=== PATIENT | male | born 1930 | race Caucasian/White ===

== ENCOUNTER 2019-09-04 10:44 | Inpatient (IN) | payer MEDICARE ==
[~2019-09-04] VITALS: Ht 177.8 cm; Wt 74.0 kg
[2019-09-04] VITALS (8 sets, daily range): BP systolic 136–189; BP diastolic 82–103
--- NOTE | 2019-09-04 10:46 | NUR ---
ED Nurse Note: Pt arrived with [employer] , due to behavioral complaint. [facility] unit at beside placed pt on 5150 hold. pt is rambling and speaking nonsense. vss.
--- NOTE | 2019-09-04 10:46 | NUR ---
ED Nurse Note: CLINICAL LAB SCIENTIST PROVIDED A NUMBER THAT WAS POSTED AGAINST THE WALL CHRISTINE [id number], [id number]
[2019-09-04] MEDS ORDERED: LORazepam Inj 2mg/ml 1ml IM ONE (11:00)
[2019-09-04] MEDS ORDERED: Haloperidol 5mg/ml Inj IM ONE (11:00)
--- NOTE | 2019-09-04 11:04 | Emergency Room Report ---
History of Present Illness General Chief Complaint: Altered Mental Status Source: EMS, Law Enforcement Present Illness HPI Patient had reportedly presented to the police department Appears to be acting bizarre and Police Department was concerned After arriving to the patient's house they report it appeared uncapped and they were concerned about the patient's wellbeing Patient has been placed on a 5150 at this time Upon arrival is initially refusing intervention Patient reports that the Police Department went to his house and he did not seek care Patient does have broken thought process Not able to have appropriate conversation appears to have limited history of present illness Allergies: Coded Allergies: UNABLE TO ASSESS (Unverified , 09/04/19) PT. IS ALTERED Patient History Limited by: medical condition Past Medical History: see triage record Reviewed Nursing Documentation: PMH: Agreed; PSxH: Agreed Review of Systems All Other Systems: limited - Other than the ones mentioned in the history of present illness all others are reviewed however they do stay limited due to the patient's mental status Physical Exam Vital Signs Date Time Temp Pulse Resp B/P (MAP) Pulse Ox O2 Delivery O2 Flow Rate FiO2 09/04/19 10:40 80 19 212/110 (144) 98 Room Air Sp02 EP Interpretation: reviewed, normal General Appearance: no apparent distress - However mildly agitated Head: normocephalic, atraumatic Eyes: bilateral eye PERRL, bilateral eye EOMI ENT: EOM grossly intact, moist mucus membranes Neck: supple Respiratory: lungs clear, no respiratory distress, no retraction Cardiovascular #1: regular rate, rhythm Gastrointestinal: non tender, soft Musculoskeletal: normal inspection - No obvious focal deficit is appreciated Neurologic: alert, other - Patient does have underlying confusion however cannot provide family member information or any other contact information Psychiatric: anxious Skin: no rash Lymphatic: normal inspection Procedures Critical Care Time Critical Care Time 70 minutes for multiple re-evaluations, emergent presentation and ongoing care in the emergency room, concern for respiratory failure and cardiopulmonary arrest not including any procedural time Medical Decision Making Diagnostic Impression: Primary Impression: Encephalopathy Additional Impression: Altered mental status ER Course Multiple differentials including but not limited to neurological, neurosurgical , metabolic infectious process entertained, upon arrival patient requires sedation as he is Aggressive and severely agitated Patient is also on a 5150 requiring further extensive work-up CT imaging of the brain does not show any obvious acute process There was question regarding foreign body Which is further evaluated X-ray does not show any acute process of the chest Patient is further hydrated requires multispecialty inpatient consultation Labs Test 09/04/19 10:46 09/04/19 11:25 09/04/19 12:00 09/05/19 07:30 White Blood Count 8.7 K/UL (4.8-10.8) 9.2 K/UL (4.8-10.8) Red Blood Count 4.10 M/UL (4.70-6.10) 4.03 M/UL (4.70-6.10) Hemoglobin 12.8 G/DL (14.2-18.0) 12.9 G/DL (14.2-18.0) Hematocrit 38.7 % (42.0-52.0) 38.0 % (42.0-52.0) Mean Corpuscular Volume 95 FL (80-99) 94 FL (80-99) Mean Corpuscular Hemoglobin 31.3 PG (27.0-31.0) 31.9 PG (27.0-31.0) Mean Corpuscular Hemoglobin Concent 33.1 G/DL (32.0-36.0) 33.9 G/DL (32.0-36.0) Red Cell Distribution Width 12.7 % (11.6-14.8) 12.9 % (11.6-14.8) Platelet Count 349 K/UL (150-450) 349 K/UL (150-450) Mean Platelet Volume 5.1 FL (6.5-10.1) 5.4 FL (6.5-10.1) Neutrophils (%) (Auto) 67.1 % (45.0-75.0) 77.9 % (45.0-75.0) Lymphocytes (%) (Auto) 17.9 % (20.0-45.0) 10.4 % (20.0-45.0) Monocytes (%) (Auto) 12.3 % (1.0-10.0) 10.0 % (1.0-10.0) Eosinophils (%) (Auto) 1.9 % (0.0-3.0) 1.2 % (0.0-3.0) Basophils (%) (Auto) 0.9 % (0.0-2.0) 0.5 % (0.0-2.0) Sodium Level 140 MMOL/L (136-145) 140 MMOL/L (136-145) Potassium Level 4.0 MMOL/L (3.5-5.1) 3.9 MMOL/L (3.5-5.1) Chloride Level 104 MMOL/L (98-107) 106 MMOL/L (98-107) Carbon Dioxide Level 26 MMOL/L (21-32) 23 MMOL/L (21-32) Anion Gap 10 mmol/L (5-15) 11 mmol/L (5-15) Blood Urea Nitrogen 20 mg/dL (7-18) 16 mg/dL (7-18) Creatinine 0.9 MG/DL (0.55-1.30) 0.8 MG/DL (0.55-1.30) Estimat Glomerular Filtration Rate mL/min (>60) > 60 mL/min (>60) Glucose Level 104 MG/DL (74-106) 149 MG/DL (74-106) Calcium Level 9.1 MG/DL (8.5-10.1) 9.0 MG/DL (8.5-10.1) Total Bilirubin 0.5 MG/DL (0.2-1.0) 0.7 MG/DL (0.2-1.0) Aspartate Amino Transf (AST/SGOT) 47 U/L (15-37) 46 U/L (15-37) Alanine Aminotransferase (ALT/SGPT) 34 U/L (12-78) 33 U/L (12-78) Alkaline Phosphatase 90 U/L (46-116) 92 U/L (46-116) Total Creatine Kinase 759 U/L (26-308) Creatine Kinase MB 16.2 NG/ML (0.0-3.6) Creatine Kinase MB Relative Index 2.1 Troponin I 0.132 ng/mL (0.000-0.056) Pro-B-Type Natriuretic Peptide 309 pg/mL (0-125) Total Protein 7.7 G/DL (6.4-8.2) 7.4 G/DL (6.4-8.2) Albumin 3.5 G/DL (3.4-5.0) 3.2 G/DL (3.4-5.0) Globulin 4.2 g/dL 4.2 g/dL Albumin/Globulin Ratio 0.8 (1.0-2.7) 0.8 (1.0-2.7) Lipase 166 U/L (73-393) Serum Alcohol < 3 mg/dL Lactic Acid Level 1.30 mmol/L (0.4-2.0) Urine Color Pale yellow Urine Appearance Clear Urine pH 6.5 (4.5-8.0) Urine Specific [place] 1.010 (1.005-1.035) Urine Protein Negative (NEGATIVE) Urine Glucose (UA) Negative (NEGATIVE) Urine Ketones Negative (NEGATIVE) Urine Blood Negative (NEGATIVE) Urine Nitrite Negative (NEGATIVE) Urine Bilirubin Negative (NEGATIVE) Urine Urobilinogen Normal MG/DL (0.0-1.0) Urine Leukocyte Esterase Negative (NEGATIVE) Urine Opiates Screen Negative (NEGATIVE) Urine Barbiturates Screen Negative (NEGATIVE) Phencyclidine (PCP) Screen Negative (NEGATIVE) Urine Amphetamines Screen Negative (NEGATIVE) Urine Benzodiazepines Screen Negative (NEGATIVE) Urine Cocaine Screen Negative (NEGATIVE) Urine Marijuana (THC) Screen Negative (NEGATIVE) Test 09/06/19 15:08 09/06/19 16:00 Arterial Blood pH 7.451 (7.350-7.450) Arterial Blood Partial Pressure CO2 37.5 mmHg (35.0-45.0) Arterial Blood Partial Pressure O2 73.2 mmHg (75.0-100.0) Arterial Blood HCO3 25.5 mmol/L (22.0-26.0) Arterial Blood Oxygen Saturation 94.7 % (95-100) Arterial Blood Base Excess 1.7 (-2-2) Angel Test Positive White Blood Count 14.3 K/UL (4.8-10.8) Red Blood Count 3.97 M/UL (4.70-6.10) Hemoglobin 12.2 G/DL (14.2-18.0) Hematocrit 39.6 % (42.0-52.0) Mean Corpuscular Volume 100 FL (80-99) Mean Corpuscular Hemoglobin 30.8 PG (27.0-31.0) Mean Corpuscular Hemoglobin Concent 30.9 G/DL (32.0-36.0) Red Cell Distribution Width 13.9 % (11.6-14.8) Platelet Count 343 K/UL (150-450) Mean Platelet Volume 6.3 FL (6.5-10.1) Neutrophils (%) (Auto) 87.0 % (45.0-75.0) Lymphocytes (%) (Auto) 3.9 % (20.0-45.0) Monocytes (%) (Auto) 8.1 % (1.0-10.0) Eosinophils (%) (Auto) 0.1 % (0.0-3.0) Basophils (%) (Auto) 0.9 % (0.0-2.0) Sodium Level 142 MMOL/L (136-145) Potassium Level 4.2 MMOL/L (3.5-5.1) Chloride Level 104 MMOL/L (98-107) Carbon Dioxide Level 31 MMOL/L (21-32) Anion Gap 8 mmol/L (5-15) Blood Urea Nitrogen 17 mg/dL (7-18) Creatinine 0.9 MG/DL (0.55-1.30) Estimat Glomerular Filtration Rate > 60 mL/min (>60) Glucose Level 150 MG/DL (74-106) Calcium Level 9.0 MG/DL (8.5-10.1) Total Bilirubin 0.5 MG/DL (0.2-1.0) Aspartate Amino Transf (AST/SGOT) 37 U/L (15-37) Alanine Aminotransferase (ALT/SGPT) 31 U/L (12-78) Alkaline Phosphatase 88 U/L (46-116) Troponin I 0.099 ng/mL (0.000-0.056) Total Protein 7.1 G/DL (6.4-8.2) Albumin 3.5 G/DL (3.4-5.0) Globulin 3.6 g/dL Albumin/Globulin Ratio 1.0 (1.0-2.7) Rhythm Strip Diag. Results EP Interpretation: yes Rate: 77 Rhythm: NSR, no PVC's, no ectopy Chest X-Ray Diagnostic Results Chest X-Ray Diagnostic Results : Chest X-Ray Ordered: Yes # of Views/Limited/Complete: 1 View Indication: Chest Pain EP Interpretation: Yes Interpretation: no consolidation, no pneumothorax, other - Bilateral lower lobe atelectasis Impression: Other - bilateral Lobe atelectasis Electronically Signed by: Orly Tee, CT/MRI/US Diagnostic Results CT/MRI/US Diagnostic Results : Impression CT headImpression: Negative for acute intracranial bleed or mass effect Possible mass in the left nasal fossa. Correlate with clinical findings. This should be amenable to direct visual inspection Chronic and age-related changes, as described Left maxillary sinus polyp versus mucous retention cyst Last Vital Signs Date Time Temp Pulse Resp B/P (MAP) Pulse Ox O2 Delivery O2 Flow Rate FiO2 09/04/19 10:40 80 19 212/110 (144) 98 Room Air Status: improved Disposition: ADMITTED INPATIENT Condition: Serious Scripts Unable to Obtain Active Prescriptions or Reported Meds Orly Tee DO Sep 04, 2019 11:04
[2019-09-04 11:28] LABS: BASOPHILS % (AUTO) 0.9 % (0.0-2.0); EOSINOPHILS % (AUTO) 1.9 % (0.0-3.0); HEMATOCRIT 38.7 % (42.0-52.0); HEMOGLOBIN 12.8 G/DL (14.2-18.0); LYMPHOCYTES % (AUTO) 17.9 % (20.0-45.0); MEAN CORPUSCULAR VOLUME 95 FL (80-99); MONOCYTES % (AUTO) 12.3 % (1.0-10.0); NEUTROPHILS % (AUTO) 67.1 % (45.0-75.0); PLATELET COUNT 349 K/UL (150-450); RED CELL DISTRIBUTION WIDTH 12.7 % (11.6-14.8); WHITE BLOOD COUNT 8.7 K/UL (4.8-10.8)
--- NOTE | 2019-09-04 11:32 | NUR ---
ED Nurse Note: pt take for head CT
[2019-09-04 11:41] LABS: ANION GAP 10 mmol/L (5-15); BLOOD UREA NITROGEN 20 mg/dL (7-18); CALCIUM 9.1 MG/DL (8.5-10.1); CARBON DIOXIDE 26 MMOL/L (21-32); CHLORIDE 104 MMOL/L (98-107); CREATININE 0.9 MG/DL (0.55-1.30); SODIUM 140 MMOL/L (136-145)
[2019-09-04 11:56] LABS: ALANINE AMINOTRANSFERASE 34 U/L (12-78); ALBUMIN 3.5 G/DL (3.4-5.0); ALBUMIN/GLOBULIN RATIO 0.8 (1.0-2.7); ALKALINE PHOSPHATASE 90 U/L (46-116); ASPARTATE AMINO TRANSFERASE 47 U/L (15-37); BILIRUBIN,TOTAL 0.5 MG/DL (0.2-1.0); CKMB 16.2 NG/ML (0.0-3.6); CREATINE KINASE 759 U/L (26-308)
--- NOTE | 2019-09-04 12:01 | NUR ---
ED Nurse Note: pt provided urine and specimen sent to lab
[2019-09-04 12:14] LABS: APPEARANCE,URINE CLEAR; BILIRUBIN, URINE NEGATIVE (NEGATIVE); COLOR,URINE PALE YELLOW; GLUCOSE, URINE (UA) NEGATIVE (NEGATIVE); KETONES,URINE NEGATIVE (NEGATIVE); LEUKOCYTE ESTERASE ,URINE NEGATIVE (NEGATIVE); NITRITE,URINE NEGATIVE (NEGATIVE); PH,URINE 6.5 (4.5-8.0); PROTEIN,URINE NEGATIVE (NEGATIVE); UROBILINOGEN,URINE NORMAL MG/DL (0.0-1.0)
--- NOTE | 2019-09-04 12:54 | Diagnostic Imaging Report ---
Indications: Altered mental status Technique: Spiral acquisitions obtained through the brain. Angled axial and coronal 5 x 5 mm slices were reconstructed. Total dose length product and 72 mGycm. CTDI vol(s) 53 mGy. Dose reduction achieved using automated exposure control Comparison: None. Findings: There is age-related enlargement of the ventricles and extra axial CSF spaces. There is periventricular deep white matter low-attenuation, consistent with chronic microvascular ischemic change. 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 No acute intercranial hemorrhage or edema, mass effect, nor midline shift. There is a left maxillary sinus polyp versus mucous retention cyst. There is chronic appearing fracture deformity of the tip of the nasal bone. The mastoids are clear. The calvarium is intact. There is suggestion of a hyperdense mass involving the anterior left middle nasal turbinate, measuring approximately 2 x 1.1 x 2 cm. Impression: Negative for acute intracranial bleed or mass effect Possible mass in the left nasal fossa. Correlate with clinical findings. This should be amenable to direct visual inspection Chronic and age-related changes, as described Left maxillary sinus polyp versus mucous retention cyst The CT scanner at [facility] is accredited by the [employer] and the scans are performed using protocols designed to limit radiation exposure to as low as reasonably achievable to attain images of sufficient resolution adequate for diagnostic evaluation.
--- NOTE | 2019-09-04 13:10 | Diagnostic Imaging Report ---
Indication: Chest pain Technique: One view of the chest Comparison: none Findings: Left hemidiaphragm is elevated. There are bilateral basilar atelectatic changes. The lungs and pleural spaces are otherwise clear. The heart size is upper limits of normal Impression: Bibasal atelectasis. No acute process otherwise
--- NOTE | 2019-09-04 13:25 | NUR ---
ED Nurse Note: PT IN BED ASLEEP
--- NOTE | 2019-09-04 15:00 | NUR ---
ED Nurse Note: Pt asleep in bed, linens changed, gown changed.
--- NOTE | 2019-09-04 17:16 | NUR ---
HAND-OFF: Report given to BENJY tolentino.
--- NOTE | 2019-09-04 20:15 | Consultation ---
DATE OF CONSULTATION: 09/04/2019 CONSULTING PHYSICIAN: Karlee Montez M.D. HISTORY OF PRESENT ILLNESS: This is an 89-year-old male with a history of multiple medical comorbidities who has been admitted to the hospital for medical stabilization. The patient is having a history of altered mental status as well as anxiety and the patient is disorganized. The patient was placed on the 5150 for bizarre behavior and severely being agitated. The patient is acting agitated and refusing care. The patient received a psychotropic medication in the emergency room. The patient is on a 5150, which will be canceled once they come to the medical floor. PAST PSYCHIATRIC HISTORY: The patient is unable to provide any meaningful information in regards to the past psychiatric history. PAST MEDICAL HISTORY: Unknown. ALLERGIES: No known drug allergies. SUBSTANCE ABUSE HISTORY: No known history of illicit drug use or alcohol. PLAN: 1. We will start the patient on low-dose of antipsychotics. 2. Ativan p.r.n. 3. We will discussed the case with the primary physician. Karlee Montez M.D. DR: LIAM JOB#: [id number] CC:
--- NOTE | 2019-09-04 21:57 | NUR ---
ER Nurse Note: Pt calm, cooperative, does not get out of bed. LT FA DC, new IV established on RT FA 20 guage; patent and wrapped in gauze. ERMD aware; hydralazine 0.5ml given. RT upper arm skin tear; slightly bleeding, photo taken. Skin rough but intact. Sitter at bedside; will continue to montior.
--- NOTE | 2019-09-04 22:56 | NUR ---
ER Nurse Note: Report given to BENJY [place] for continuity of care. Pt cooprative, no signs of distress. Pt remains at baseline. BP controlled by hydralazine. Skin tear gauzed and documented. Sitter at bedside. All belongings taken with pt, all safety measures met.
[2019-09-04] MEDS ORDERED: Acetaminophen 500mg (ES) tab ORAL PRN (23:15)
--- NOTE | 2019-09-04 23:30 | NUR ---
NURSE NOTES: Patient admitted from ER via gurney, accompanied by RN and sitter. Belongings verified at bedside. Patient cooperative at this time. IV right forearm wrapped in kerlix. Noted skin tear on right upper arm. No signs of acute distress. Oriented to room and unit. Bed locked in low position, bed alarm on. Fall risk precautions. Will monitor closely; sitter at bedside at all times.
[2019-09-05] VITALS (7 sets, daily range): BP systolic 96–144; BP diastolic 63–87
--- NOTE | 2019-09-05 04:45 | History and Physical Report ---
DATE OF ADMISSION: 09/04/2019 HISTORY OF PRESENT ILLNESS: The patient is gravely disabled. He was here initially apparently by police for a 5150 because the patient is gravely disabled, hearing deficit, has dementia, not oriented, cannot get any reliable history from him. Apparently, the patient is here for altered mental status and advanced dementia, admitted for rule out encephalopathy. PAST MEDICAL HISTORY: 1. Advanced dementia. 2. Hearing deficit. PAST SURGICAL HISTORY: Denies. ALLERGIES: Unable to assess. MEDICATIONS: Unable to assess. FAMILY HISTORY: Unable to assess. SOCIAL HISTORY: The patient denies history of smoking, alcohol, or illicit drugs, however, is a poor historian. REVIEW OF SYSTEMS: Unable to assess, poor historian. PHYSICAL EXAMINATION: VITAL SIGNS: Temperature 98.4, pulse 80, blood pressure 189/103. HEENT: PERRLA. NECK: Supple. No lymphadenopathy. CHEST: Clear to auscultation. CARDIOVASCULAR: Regular rate and rhythm. No murmurs or extra sounds. GASTROINTESTINAL: Soft, nontender, nondistended. No organomegaly. EXTREMITIES: No edema. Moves all four extremities. NEUROLOGIC: Sensory intact to light touch. Reflexes equal on both sides. Moves all four extremities. . LABORATORY AND DIAGNOSTIC DATA: WBC of 8.7, hemoglobin 12.8. Sodium 140, potassium 4, BUN of 20, creatinine 0.9, . Troponin 0.132. ASSESSMENT: 1. Elevated troponin. 2. Altered mental status. 3. Advanced dementia. I have asked Dr. Montez, Dr. Lee Avila, Dr. Shashi Em, Dr. Anirudh Godfrey to see the patient for the altered mental status as well as Dr. Em has been consulted for elevated troponin. Orly Gilbert M.D. DR: Melinda JOB#: [id number] CC:
--- NOTE | 2019-09-05 07:51 | NUR ---
HAND-OFF: Report given to Kym BURLESON.
[2019-09-05 08:17] LABS: BASOPHILS % (AUTO) 0.5 % (0.0-2.0); EOSINOPHILS % (AUTO) 1.2 % (0.0-3.0); HEMOGLOBIN 12.9 G/DL (14.2-18.0); LYMPHOCYTES % (AUTO) 10.4 % (20.0-45.0); MEAN CORPUSCULAR VOLUME 94 FL (80-99); NEUTROPHILS % (AUTO) 77.9 % (45.0-75.0); PLATELET COUNT 349 K/UL (150-450); RED BLOOD COUNT 4.03 M/UL (4.70-6.10); RED CELL DISTRIBUTION WIDTH 12.9 % (11.6-14.8); WHITE BLOOD COUNT 9.2 K/UL (4.8-10.8)
[2019-09-05 09:03] LABS: ALANINE AMINOTRANSFERASE 33 U/L (12-78); ALBUMIN 3.2 G/DL (3.4-5.0); ALBUMIN/GLOBULIN RATIO 0.8 (1.0-2.7); ALKALINE PHOSPHATASE 92 U/L (46-116); ANION GAP 11 mmol/L (5-15); ASPARTATE AMINO TRANSFERASE 46 U/L (15-37); BILIRUBIN,TOTAL 0.7 MG/DL (0.2-1.0); BLOOD UREA NITROGEN 16 mg/dL (7-18); CARBON DIOXIDE 23 MMOL/L (21-32); CHLORIDE 106 MMOL/L (98-107); CREATININE 0.8 MG/DL (0.55-1.30); POTASSIUM 3.9 MMOL/L (3.5-5.1); SODIUM 140 MMOL/L (136-145)
--- NOTE | 2019-09-05 10:17 | Consultation ---
History of Present Illness General Chief Complaint: Altered Mental Status Present Illness Allergies: Coded Allergies: UNABLE TO ASSESS (Unverified , 09/04/19) PT. IS ALTERED Medication History Unable to Obtain Active Prescriptions or Reported Meds Patient History Healthcare decision maker Resuscitation status Full Code Advanced Directive on File Physical Exam Last 24 Hour Vital Signs Date Time Temp Pulse Resp B/P (MAP) Pulse Ox O2 Delivery O2 Flow Rate FiO2 09/05/19 09:00 Room Air 09/05/19 09:00 97.1 77 19 138/75 (96) 96 09/05/19 04:00 98.2 79 18 141/87 (105) 96 09/05/19 00:00 98.1 84 20 96/69 (78) 97 09/04/19 23:30 Room Air 09/04/19 23:10 97.7 82 20 157/88 (111) 95 09/04/19 22:56 98.2 82 16 138/82 98 Room Air 09/04/19 22:56 98.2 82 16 138/82 98 Room Air 09/04/19 22:06 98.2 84 16 136/101 98 Room Air 09/04/19 21:57 98.2 84 16 180/90 98 Room Air 09/04/19 21:56 180/90 09/04/19 15:15 98.2 79 15 168/84 98 Room Air 09/04/19 13:12 98.2 89 17 175/98 100 Room Air 09/04/19 12:30 98.4 72 22 168/101 98 Room Air 09/04/19 10:46 98.4 102 19 189/103 98 Room Air 09/04/19 10:46 80 19 Room Air 09/04/19 10:40 80 19 212/110 (144) 98 Room Air Intake and Output 09/04/19 09/05/19 19:00 07:00 Intake Total 1000 ml Output Total 0 ml Balance 1000 ml Intake IV Total 1000 ml Output Urine Total 0 ml Laboratory Tests Test 09/04/19 10:46 09/04/19 11:25 09/04/19 12:00 09/05/19 07:30 White Blood Count 8.7 K/UL (4.8-10.8) 9.2 K/UL (4.8-10.8) Red Blood Count 4.10 M/UL (4.70-6.10) L 4.03 M/UL (4.70-6.10) L Hemoglobin 12.8 G/DL (14.2-18.0) L 12.9 G/DL (14.2-18.0) L Hematocrit 38.7 % (42.0-52.0) L 38.0 % (42.0-52.0) L Mean Corpuscular Volume 95 FL (80-99) 94 FL (80-99) Mean Corpuscular Hemoglobin 31.3 PG (27.0-31.0) H 31.9 PG (27.0-31.0) H Mean Corpuscular Hemoglobin Concent 33.1 G/DL (32.0-36.0) 33.9 G/DL (32.0-36.0) Red Cell Distribution Width 12.7 % (11.6-14.8) 12.9 % (11.6-14.8) Platelet Count 349 K/UL (150-450) 349 K/UL (150-450) Mean Platelet Volume 5.1 FL (6.5-10.1) L 5.4 FL (6.5-10.1) L Neutrophils (%) (Auto) 67.1 % (45.0-75.0) 77.9 % (45.0-75.0) H Lymphocytes (%) (Auto) 17.9 % (20.0-45.0) L 10.4 % (20.0-45.0) L Monocytes (%) (Auto) 12.3 % (1.0-10.0) H 10.0 % (1.0-10.0) Eosinophils (%) (Auto) 1.9 % (0.0-3.0) 1.2 % (0.0-3.0) Basophils (%) (Auto) 0.9 % (0.0-2.0) 0.5 % (0.0-2.0) Sodium Level 140 MMOL/L (136-145) 140 MMOL/L (136-145) Potassium Level 4.0 MMOL/L (3.5-5.1) 3.9 MMOL/L (3.5-5.1) Chloride Level 104 MMOL/L (98-107) 106 MMOL/L (98-107) Carbon Dioxide Level 26 MMOL/L (21-32) 23 MMOL/L (21-32) Anion Gap 10 mmol/L (5-15) 11 mmol/L (5-15) Blood Urea Nitrogen 20 mg/dL (7-18) H 16 mg/dL (7-18) Creatinine 0.9 MG/DL (0.55-1.30) 0.8 MG/DL (0.55-1.30) Estimat Glomerular Filtration Rate mL/min (>60) > 60 mL/min (>60) Glucose Level 104 MG/DL (74-106) 149 MG/DL (74-106) H Calcium Level 9.1 MG/DL (8.5-10.1) 9.0 MG/DL (8.5-10.1) Total Bilirubin 0.5 MG/DL (0.2-1.0) 0.7 MG/DL (0.2-1.0) Aspartate Amino Transf (AST/SGOT) 47 U/L (15-37) H 46 U/L (15-37) H Alanine Aminotransferase (ALT/SGPT) 34 U/L (12-78) 33 U/L (12-78) Alkaline Phosphatase 90 U/L (46-116) 92 U/L (46-116) Total Creatine Kinase 759 U/L (26-308) H Creatine Kinase MB 16.2 NG/ML (0.0-3.6) H Creatine Kinase MB Relative Index 2.1 Troponin I 0.132 ng/mL (0.000-0.056) Pro-B-Type Natriuretic Peptide 309 pg/mL (0-125) H Total Protein 7.7 G/DL (6.4-8.2) 7.4 G/DL (6.4-8.2) Albumin 3.5 G/DL (3.4-5.0) 3.2 G/DL (3.4-5.0) L Globulin 4.2 g/dL 4.2 g/dL Albumin/Globulin Ratio 0.8 (1.0-2.7) L 0.8 (1.0-2.7) L Lipase 166 U/L (73-393) Serum Alcohol < 3 mg/dL Lactic Acid Level 1.30 mmol/L (0.4-2.0) Urine Color Pale yellow Urine Appearance Clear Urine pH 6.5 (4.5-8.0) Urine Specific [place] 1.010 (1.005-1.035) Urine Protein Negative (NEGATIVE) Urine Glucose (UA) Negative (NEGATIVE) Urine Ketones Negative (NEGATIVE) Urine Blood Negative (NEGATIVE) Urine Nitrite Negative (NEGATIVE) Urine Bilirubin Negative (NEGATIVE) Urine Urobilinogen Normal MG/DL (0.0-1.0) Urine Leukocyte Esterase Negative (NEGATIVE) Urine Opiates Screen Negative (NEGATIVE) Urine Barbiturates Screen Negative (NEGATIVE) Phencyclidine (PCP) Screen Negative (NEGATIVE) Urine Amphetamines Screen Negative (NEGATIVE) Urine Benzodiazepines Screen Negative (NEGATIVE) Urine Cocaine Screen Negative (NEGATIVE) Urine Marijuana (THC) Screen Negative (NEGATIVE) Microbiology Date/Time Source Procedure Growth Status 09/04/19 21:50 Rectum Received Height (Feet): 5 Height (Inches): 10.00 Weight (Pounds): 163 Medications Current Medications Medications (Trade) Dose Ordered Sig/[place] Route PRN Reason Start Time Stop Time Status Last Admin Dose Admin Acetaminophen (Tylenol) 500 mg Q4H PRN ORAL Mild Pain/Temp > 100.5 09/04/19 23:15 10/04/19 23:14 Assessment/Plan Assessment/Plan: Hematology Consultation REQ MD: Orly Britt RFC: ANemia and FTT DOS: 09/05/19 ID 89y old [place] patient had reportedly presented to the police department Appears to be acting bizarre and Police Department was concerned After arriving to the patient's house they report it appeared uncapped and they were concerned about the patient's wellbeing Patient has been placed on a 5150 at this time Upon arrival is initially refusing intervention Patient reports that the Police Department went to his house and he did not seek care Patient does have broken thought process Not able to have appropriate conversation appears to have limited history of present illness Seen by Dr. Montez, psych meds started Heme was consulted for ftt and anemia eval Coded Allergies: UNABLE TO ASSESS (Unverified , 09/04/19) PT. IS ALTERED Patient History Limited by: medical condition Past Medical History: see triage record Reviewed Nursing Documentation: PMH: Agreed; PSxH: Agreed Review of Systems All Other Systems: limited - Other than the ones mentioned in the history of present illness all others are reviewed however they do stay limited due to the patient's mental status Fam Hx: unreliable Physical Exam: Vitals: reviewed General Appearance: NAD, ConfuseD++ HEENT: normocephalic, atraumatic Neck: non-tender, supple Respiratory/Chest: normal breath sounds bilaterally Cardiovascular/Chest: normal peripheral pulses, normal rate Abdomen: normal bowel sounds, soft, nontender Extremities: normal range of motion Labs: noted Imaging: reviewed Assess/Recs: # Anemia of chronic disease due to underlying chronic medical issues, multifactorial v Gi bleed --> Anemia workup has been ordered, rule out gi bleed --> No evidence of hemolysis is noted, peripheral smear has been reviewed. --> Hgb goal >7. Transfuse prn. --> Epogen or iron at this time is not particularly indicated --> Medications have been reviewed --> low threshold for gi evaluation in case has occult + # Troponin elevation --> mild, as per cards eval --> repeat as needed # Dehydration --> po intake and ivf as needed --> per renal # pSych d/o --> as per Dr. Montez # Dementia --> per neuro Reviewed with Rn, appreciate consultation Lee Avila MD Sep 05, 2019 10:17
--- NOTE | 2019-09-05 11:30 | NUR ---
NURSE NOTES: pt in bed with sitter at bedside. Remains calm in bed. Breathing regular and unlabored. denies any pain at this time. bed in lowest position. fall precaution provided. will continue to monitor.
--- NOTE | 2019-09-05 12:51 | NUR ---
NURSE NOTES: sitter at bedside. Educated sitter for fall precaution. Informed [place] WEIGHER that pt is at high fall risk. RN made frequent rounding. Bed alarm on, bed in lowest position. siderails x2 up. Call light within reach at all time. will continue to monitor
--- NOTE | 2019-09-05 13:44 | NUR ---
CASE MANAGEMENT:INITIAL REVIEW 89 YR OLD MALE BIBA FROM HOME CC;ALTERED MENTAL STATUS SI;ALTERED MENTAL STATUS. ENCEPHALOPATHY. 98.4 102 22 212/110 98% ON RA BUN 20 AST 47 TCK 759 [address] - Negative for acute intracranial bleed or mass effect IS;HALDOL IM X1 ATIVAN IM X1 IVF NS BOLUS X1 ADMITTED TO MED SURG MED SURG STATUS DCP;FROM HOME
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
--- NOTE | 2019-09-05 14:33 | Consultation ---
History of Present Illness General Date patient seen: Sep 05, 2019 Reason for Hospitalization: Altered Mental Status Present Illness HPI 89M currently admitted for mental evaluation given AMS and acting bizarre. On admission noted to have sacral DTI. surgery called to evaluate. pt seen, chart reviewed, patient examined. 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 is ambulatory. no complaints no nv/f/c/ Allergies: Coded Allergies: UNABLE TO ASSESS (Unverified , 09/04/19) PT. IS ALTERED Medication History Unable to Obtain Active Prescriptions or Reported Meds Patient History Limited by: medical condition History Provided By: Patient, Medical Record, PMD Healthcare decision maker Resuscitation status Full Code Advanced Directive on File Past Medical/Surgical History Past Medical/Surgical History: (1) Altered mental status (2) Encephalopathy (3) Decubital ulcer Review of Systems Review of Symptoms General ROS: no weight loss or fever Psychological ROS: no depression or mood changes, no memory loss Ophthalmic ROS: no visual changes or eye irritation ENT ROS: no nasal congestion, hearing loss, dizziness Allergy and Immunology ROS: no allergic symptoms or urticaria Hematological and Lymphatic ROS: no swollen glands, unusual bleeding or bruising Endocrine ROS: no polyuria, polydipsia, weight changes, temperature intolerance Respiratory ROS: no cough, shortness of breath, or wheezing Cardiovascular ROS: no chest pain or dyspnea on exertion Gastrointestinal ROS: denies abdominal pain, bright red blood in stool. Musculoskeletal ROS: no myalgias or arthralgias Neurological ROS: no TIA or stroke symptoms Dermatological ROS: no new or changing skin lesions, rashes or pruritis Physical Exam Physical Exam General appearance: alert, cooperative, no distress, appears stated age Head: Normocephalic, without obvious abnormality, atraumatic Eyes: conjunctivae/corneas clear. PERRL, EOM's intact. Fundi benign Throat: Lips, mucosa, and tongue normal. Teeth and gums normal Neck: supple, symmetrical, trachea midline, no adenopathy, thyroid: not enlarged, symmetric, no tenderness/mass/nodules, no carotid bruit and no JVD Lungs: clear to auscultation bilaterally Heart: regular rate and rhythm, S1, S2 normal, no murmur, click, rub or gallop Abdomen: soft, non-tender. Bowel sounds normal. No masses, no organomegaly Extremities: extremities normal, atraumatic, no cyanosis or edema Pulses: 2+ and symmetric Skin: sacral wound Neurologic: Grossly normal Last 24 Hour Vital Signs Date Time Temp Pulse Resp B/P (MAP) Pulse Ox O2 Delivery O2 Flow Rate FiO2 09/05/19 12:00 98.6 77 21 144/79 (100) 99 09/05/19 09:00 Room Air 09/05/19 09:00 97.1 77 19 138/75 (96) 96 09/05/19 04:00 98.2 79 18 141/87 (105) 96 09/05/19 00:00 98.1 84 20 96/69 (78) 97 09/04/19 23:30 Room Air 09/04/19 23:10 97.7 82 20 157/88 (111) 95 09/04/19 22:56 98.2 82 16 138/82 98 Room Air 09/04/19 22:56 98.2 82 16 138/82 98 Room Air 09/04/19 22:06 98.2 84 16 136/101 98 Room Air 09/04/19 21:57 98.2 84 16 180/90 98 Room Air 09/04/19 21:56 180/90 09/04/19 15:15 98.2 79 15 168/84 98 Room Air Intake and Output 09/04/19 09/05/19 19:00 07:00 Intake Total 1000 ml Output Total 0 ml Balance 1000 ml IV Total 1000 ml Output Urine Total 0 ml Laboratory Tests Test 09/05/19 07:30 White Blood Count 9.2 K/UL (4.8-10.8) Red Blood Count 4.03 M/UL (4.70-6.10) L Hemoglobin 12.9 G/DL (14.2-18.0) L Hematocrit 38.0 % (42.0-52.0) L Mean Corpuscular Volume 94 FL (80-99) Mean Corpuscular Hemoglobin 31.9 PG (27.0-31.0) H Mean Corpuscular Hemoglobin Concent 33.9 G/DL (32.0-36.0) Red Cell Distribution Width 12.9 % (11.6-14.8) Platelet Count 349 K/UL (150-450) Mean Platelet Volume 5.4 FL (6.5-10.1) L Neutrophils (%) (Auto) 77.9 % (45.0-75.0) H Lymphocytes (%) (Auto) 10.4 % (20.0-45.0) L Monocytes (%) (Auto) 10.0 % (1.0-10.0) Eosinophils (%) (Auto) 1.2 % (0.0-3.0) Basophils (%) (Auto) 0.5 % (0.0-2.0) Sodium Level 140 MMOL/L (136-145) Potassium Level 3.9 MMOL/L (3.5-5.1) Chloride Level 106 MMOL/L (98-107) Carbon Dioxide Level 23 MMOL/L (21-32) Anion Gap 11 mmol/L (5-15) Blood Urea Nitrogen 16 mg/dL (7-18) Creatinine 0.8 MG/DL (0.55-1.30) Estimat Glomerular Filtration Rate > 60 mL/min (>60) Glucose Level 149 MG/DL (74-106) H Calcium Level 9.0 MG/DL (8.5-10.1) Total Bilirubin 0.7 MG/DL (0.2-1.0) Aspartate Amino Transf (AST/SGOT) 46 U/L (15-37) H Alanine Aminotransferase (ALT/SGPT) 33 U/L (12-78) Alkaline Phosphatase 92 U/L (46-116) Total Protein 7.4 G/DL (6.4-8.2) Albumin 3.2 G/DL (3.4-5.0) L Globulin 4.2 g/dL Albumin/Globulin Ratio 0.8 (1.0-2.7) L Microbiology Date/Time Source Procedure Growth Status 09/04/19 21:50 Rectum Received Height (Feet): 5 Height (Inches): 10.00 Weight (Pounds): 163 Medications Current Medications Medications (Trade) Dose Ordered Sig/Cydney Route PRN Reason Start Time Stop Time Status Last Admin Dose Admin Acetaminophen (Tylenol) 500 mg Q4H PRN ORAL Mild Pain/Temp > 100.5 09/04/19 23:15 10/04/19 23:14 Assessment/Plan Problem List: (1) Decubital ulcer Assessment & Plan: right arm skin tear traumatic shoulder skin abrasion sacral DTI patient states he is mobile and ambulatory but likes to lay flat or sit is unaware of wounds but states does feel sacral discomfort no n/v/f/c labs noted discussed care plan with patient. he seems motivated to improve but does have psych history nutritional optimization turn q2h ambulate with assist until stable / clear with PT foam dressing tosacram and abrasion on arm/shoulder daily and prn thank you ICD Codes: L89.90 - Pressure ulcer of unspecified site, unspecified stage SNOMED: 779109616 Joseph Shipman Sep 05, 2019 14:33
--- NOTE | 2019-09-05 17:10 | NUR ---
NURSE NOTES:WOUND CARE NOTES:Pt presented on admission with Category 3 Skin tear with full flap loss R deltoid.Small amt sanguineous exudate noted. Category 2 skin tear with 40% flap loss,60% rolled skin flap reapplied to base of wound R upper extremity. Small amt sanguineous exudate. DTPI noted to Sacrum. Base of wound is purple and indurated over sacrococcygeal area with surrounding maroon discoloration. Site tender when minimally palpated.(L)7.5cm x (W)10cm. Non-blanching erythema without induration or fluctuance noted to R heel. Non-tender when palpated. Non-blanching erythema without induration or fluctuance noted to L heel. Non- tender when palpated. No other areas of skin breakdown noted. Tx.Plan:Cleanse Skin tears R deltoid and R upper arm with Saline. Maintain Versatel One contact layer. Apply Silvasorb Gel to each wound. Cover wounds with Optifoam drsgs. Change every 7 days and prn. Apply Moisture Barrier Paste to Sacrum. Cover with Optifoam drsg. Change every 7 days and prn. Apply Cavilon Skin Barrier to both heels. Cover each heel with Optifoam drsg. Change every 7 days and prn. Reposition at least every 2hours or as tolerated. Off-load heels with pillow.
--- NOTE | 2019-09-05 19:24 | NUR ---
HAND-OFF: Report given to BENJY Goldsmith.
--- NOTE | 2019-09-05 20:00 | NUR ---
NURSE NOTES: Patient received in the room, about to get up the bed, sitter at bedside redirecting patient back to bed or sit on the chair. Patient gait unsteady. Patient follows command after a few tries to redirect. Will continue close monitoring. Yellow socks and yellow gown on patient, high risk for fall and wandering. Communicated with sitter. Will continue close monitoring.
--- NOTE | 2019-09-05 20:45 | Progress Note ---
DATE: 09/05/2019 SUBJECTIVE: The patient is much calmer, more manageable, not attempting to come out of bed. Did not have any agitation last night. The patient slept through the night and is not coming out of bed. Not having any suicidal or homicidal ideation. MENTAL STATUS EXAMINATION: The patient is alert, oriented times self, place. Hard of hearing. Mood is neutral. Affect is flat. Thought process is concrete. Thought content, no suicidal or homicidal ideation. Cognition is impaired. Insight and judgment is impaired. ASSESSMENT: Acute encephalopathy. PLAN: 1. The patient will be started on risperidone at bedtime p.r.n. 2. Provide the patient with reality orientation and supportive therapy. Karlee Montez M.D. DR: BRIA JOB#: [id number] CC:
--- NOTE | 2019-09-05 21:20 | General Progress Note ---
Assessment/Plan Problem List: (1) Altered mental status ICD Codes: R41.82 - Altered mental status, unspecified SNOMED: 839354267 (2) Encephalopathy ICD Codes: G93.40 - Encephalopathy, unspecified SNOMED: 56565525 Status: stable Assessment/Plan: gravely disable unable to care for himself ams dementia reviewe chart and labs Subjective ROS Limited/Unobtainable: Yes Allergies: Coded Allergies: UNABLE TO ASSESS (Unverified , 09/04/19) PT. IS ALTERED Objective Last 24 Hour Vital Signs Date Time Temp Pulse Resp B/P (MAP) Pulse Ox O2 Delivery O2 Flow Rate FiO2 09/05/19 15:49 98.2 78 20 120/63 (82) 09/05/19 12:00 98.6 77 21 144/79 (100) 99 09/05/19 09:00 Room Air 09/05/19 09:00 97.1 77 19 138/75 (96) 96 09/05/19 04:00 98.2 79 18 141/87 (105) 96 09/05/19 00:00 98.1 84 20 96/69 (78) 97 09/04/19 23:30 Room Air 09/04/19 23:10 97.7 82 20 157/88 (111) 95 09/04/19 22:56 98.2 82 16 138/82 98 Room Air 09/04/19 22:56 98.2 82 16 138/82 98 Room Air 09/04/19 22:06 98.2 84 16 136/101 98 Room Air 09/04/19 21:57 98.2 84 16 180/90 98 Room Air 09/04/19 21:56 180/90 Intake and Output 09/04/19 09/05/19 19:00 07:00 Intake Total 1000 ml Output Total 0 ml Balance 1000 ml IV Total 1000 ml Output Urine Total 0 ml Laboratory Tests 09/05/19 07:30: White Blood Count 9.2, Red Blood Count 4.03L, Hemoglobin 12.9L, Hematocrit 38.0L , Mean Corpuscular Volume 94, Mean Corpuscular Hemoglobin 31.9H, Mean Corpuscular Hemoglobin Concent 33.9, Red Cell Distribution Width 12.9, Platelet Count 349, Mean Platelet Volume 5.4L, Neutrophils (%) (Auto) 77.9H, Lymphocytes (%) (Auto) 10.4L, Monocytes (%) (Auto) 10.0, Eosinophils (%) (Auto) 1.2, Basophils (%) (Auto) 0.5, Sodium Level 140, Potassium Level 3.9, Chloride Level 106, Carbon Dioxide Level 23, Anion Gap 11, Blood Urea Nitrogen 16, Creatinine 0.8, Estimat Glomerular Filtration Rate > 60, Glucose Level 149H, Calcium Level 9.0, Total Bilirubin 0.7, Aspartate Amino Transf (AST/SGOT) 46H, Alanine Aminotransferase (ALT/SGPT) 33, Alkaline Phosphatase 92, Total Protein 7.4, Albumin 3.2L, Globulin 4.2, Albumin/Globulin Ratio 0.8L Height (Feet): 5 Height (Inches): 10.00 Weight (Pounds): 163 Neck: supple Cardiovascular: normal rate Respiratory/Chest: lungs clear Orly Gilbert MD Sep 05, 2019 21:20
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
--- NOTE | 2019-09-06 00:24 | NUR ---
NURSE NOTES: Called Dr. Montez and left message. Patient was increasingly agitated stating he needs to leave and meet someone. Reality orientation provided for patient but patient continued to be confused. Sitter at bedside and security was called to bring patient back in the room and in the bed. Sitter at bedside at all times. Will continue close monitoring. Addendum: 09/06/19 at 0129 by CHRIS WEBSTER RN RN Patient calm in bed asleep at this time, sitter at bedside. Bed alarm on. Will continue close monitoring.
--- NOTE | 2019-09-06 04:25 | NUR ---
NURSE NOTES: Noted with another skin tear on left upper arm. Wound is cleansed and covered with optifoam dressing.
--- NOTE | 2019-09-06 04:43 | NUR ---
NURSE NOTES: Patient refused lab draw. Will retry at a later time.
--- NOTE | 2019-09-06 05:00 | NUR ---
NURSE NOTES: Patient again became increasingly aggressive, not following commands. Confused, only oriented to name. Attempted to reorient patient but patient insists on going home to take his medicines. Difficult to redirect. Sitter unable to control patient. 3 RNs plus 2 security had to bring him back to bed. Call placed again to Dr. Montez and Dr. Gilbert for urgent orders. Addendum: 09/06/19 at 0575 by CHRIS WEBSTER RN RN No change in patient behavior. Still very agitated,combative and restless wanting to leave the room and the hospital. Refusing medications and blood draw. Another call placed to Dr. Montez and Dr. Gilbert. Addendum: 09/06/19 at 0688 by CHRIS WEBSTER RN RN supervisor sewer system also unable to reach Dr. Gilbert. Call escalated to Dr. Pardo. Message left. Sitter remains with patient. Patient behavior still aggressive, resistive to care and combative.
--- NOTE | 2019-09-06 06:45 | NUR ---
NURSE NOTES: Dr. Gilbert called and stated that he will call Dr. Montez himself as he is unable to order psych medications. For the mean time, apply bilateral soft wrist restraints until Dr. Montez calls and orders medications for patient.
--- NOTE | 2019-09-06 07:25 | NUR ---
HAND-OFF: Report given to Kym. Endorse high fall risk with sitter and bilateral soft wrist restraints due to patient is aggressive, combative and uncooperative during the maintenance assistant. Bed locked, alarm is on high setting. Sitter at bedside assisting patient to bathroom at all times.
--- NOTE | 2019-09-06 07:32 | NUR ---
NURSE NOTES: pt Remains calm in bed having breakfast. Sitter at bedside. Released (B)wrist restraint while pt is eating breakfast. Educated sitter that pt requires close monitoring with fall precaution. Bed alarm on, locked, side rails x2 up. Oriented pt to reality and kept clean and comfortable. Will continue to monitor.
[2019-09-06 08:00] VITALS: BP 149/91
[2019-09-06] MEDS ORDERED: Haloperidol 5mg/ml Inj IM PRN (08:30)
[2019-09-06] MEDS ORDERED: LORazepam Inj 2mg/ml 1ml IM PRN (08:30)
--- NOTE | 2019-09-06 08:42 | Hematology/Onc Progress Note ---
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 --> Hgb goal >7. Transfuse prn. --> Epogen or iron at this time is not particularly indicated --> Medications have been reviewed --> low threshold for gi evaluation in case has occult + --> hgb 12.9 # Troponin elevation --> mild, as per cards eval --> repeat as needed # Dehydration --> po intake and ivf as needed --> per renal # pSych d/o --> as per Dr. Montez # Dementia --> per neuro Reviewed with Rn, appreciate consultation Subjective Constitutional: Denies: no symptoms, chills, fever, malaise, weakness, other HEENT: Denies: no symptoms, eye pain, blurred vision, tearing, double vision, ear pain, ear discharge, nose pain, nose congestion, throat pain, throat swelling, mouth pain, mouth swelling, other Cardiovascular: Denies: no symptoms, chest pain, edema, irregular heart rate, lightheadedness, palpitations, syncope, other Respiratory: Denies: no symptoms, cough, shortness of breath, SOB with excertion, SOB at rest, sputum, wheezing, other Gastrointestinal/Abdominal: Denies: no symptoms, abdomen distended, abdominal pain, black stools, tarry stools, blood in stool, constipated, diarrhea, difficulty swallowing, nausea, poor appetite, poor fluid intake, rectal bleeding , vomiting, other Genitourinary: Denies: no symptoms, burning, discharge, frequency, flank pain, hematuria, incontinence, pain, urgency, other Neurologic/Psychiatric: Denies: no symptoms, anxiety, depressed, emotional problems, headache, numbness, paresthesia, pre-existing deficit, seizure, tingling, tremors, weakness, other Endocrine: Denies: no symptoms, excessive sweating, flushing, intolerance to cold, intolerance to heat, increased hunger, increased thirst, increased urine, unexplained weight gain, unexplained weight loss, other Allergies: Coded Allergies: UNABLE TO ASSESS (Unverified , 09/04/19) PT. IS ALTERED Subjective 09/06: labs noted, with restraints, psych aware, meds reviewed Objective Objective Current Medications Medications (Trade) Dose Ordered Sig/Cydney Route PRN Reason Start Time Stop Time Status Last Admin Dose Admin Acetaminophen (Tylenol) 500 mg Q4H PRN ORAL Mild Pain/Temp > 100.5 09/04/19 23:15 10/04/19 23:14 Haloperidol Lactate (Haldol) 5 mg Q4H PRN IM Agitation 09/06/19 08:30 10/06/19 08:29 Levothyroxine Sodium (Synthroid) 50 mcg DAILY@0630 ORAL 09/06/19 06:30 10/06/19 06:29 Lorazepam (Ativan 2mg/ml 1ml) 2 mg Q4H PRN IM AGITATION 09/06/19 08:30 09/13/19 08:29 Risperidone (RisperDAL) 1 mg Q12HR ORAL 09/06/19 09:00 10/06/19 08:59 Last 24 Hour Vital Signs Date Time Temp Pulse Resp B/P (MAP) Pulse Ox O2 Delivery O2 Flow Rate FiO2 09/05/19 23:32 97.9 71 16 132/77 (95) 97 09/05/19 21:00 Room Air 09/05/19 20:00 97.7 96 18 118/82 (94) 96 09/05/19 15:49 98.2 78 20 120/63 (82) 09/05/19 12:00 98.6 77 21 144/79 (100) 99 09/05/19 09:00 Room Air 09/05/19 09:00 97.1 77 19 138/75 (96) 96 09/05/19 04:00 98.2 79 18 141/87 (105) 96 09/05/19 00:00 98.1 84 20 96/69 (78) 97 09/04/19 23:30 Room Air 09/04/19 23:10 97.7 82 20 157/88 (111) 95 09/04/19 22:56 98.2 82 16 138/82 98 Room Air 09/04/19 22:56 98.2 82 16 138/82 98 Room Air 09/04/19 22:06 98.2 84 16 136/101 98 Room Air 09/04/19 21:57 98.2 84 16 180/90 98 Room Air 2/11/20 21:56 180/90 09/04/19 15:15 98.2 79 15 168/84 98 Room Air 09/04/19 13:12 98.2 89 17 175/98 100 Room Air 09/04/19 12:30 98.4 72 22 168/101 98 Room Air 09/04/19 10:46 98.4 102 19 189/103 98 Room Air 09/04/19 10:46 80 19 Room Air 09/04/19 10:40 80 19 212/110 (144) 98 Room Air Intake and Output 09/05/19 09/06/19 19:00 07:00 Intake Total 960 ml 100 ml Balance 960 ml 100 ml Intake Oral 960 ml 100 ml # Voids 4 4 Labs Test 09/04/19 10:46 09/04/19 11:25 09/04/19 12:00 09/05/19 07:30 White Blood Count 8.7 K/UL (4.8-10.8) 9.2 K/UL (4.8-10.8) Red Blood Count 4.10 M/UL (4.70-6.10) 4.03 M/UL (4.70-6.10) Hemoglobin 12.8 G/DL (14.2-18.0) 12.9 G/DL (14.2-18.0) Hematocrit 38.7 % (42.0-52.0) 38.0 % (42.0-52.0) Mean Corpuscular Volume 95 FL (80-99) 94 FL (80-99) Mean Corpuscular Hemoglobin 31.3 PG (27.0-31.0) 31.9 PG (27.0-31.0) Mean Corpuscular Hemoglobin Concent 33.1 G/DL (32.0-36.0) 33.9 G/DL (32.0-36.0) Red Cell Distribution Width 12.7 % (11.6-14.8) 12.9 % (11.6-14.8) Platelet Count 349 K/UL (150-450) 349 K/UL (150-450) Mean Platelet Volume 5.1 FL (6.5-10.1) 5.4 FL (6.5-10.1) Neutrophils (%) (Auto) 67.1 % (45.0-75.0) 77.9 % (45.0-75.0) Lymphocytes (%) (Auto) 17.9 % (20.0-45.0) 10.4 % (20.0-45.0) Monocytes (%) (Auto) 12.3 % (1.0-10.0) 10.0 % (1.0-10.0) Eosinophils (%) (Auto) 1.9 % (0.0-3.0) 1.2 % (0.0-3.0) Basophils (%) (Auto) 0.9 % (0.0-2.0) 0.5 % (0.0-2.0) Sodium Level 140 MMOL/L (136-145) 140 MMOL/L (136-145) Potassium Level 4.0 MMOL/L (3.5-5.1) 3.9 MMOL/L (3.5-5.1) Chloride Level 104 MMOL/L (98-107) 106 MMOL/L (98-107) Carbon Dioxide Level 26 MMOL/L (21-32) 23 MMOL/L (21-32) Anion Gap 10 mmol/L (5-15) 11 mmol/L (5-15) Blood Urea Nitrogen 20 mg/dL (7-18) 16 mg/dL (7-18) Creatinine 0.9 MG/DL (0.55-1.30) 0.8 MG/DL (0.55-1.30) Estimat Glomerular Filtration Rate mL/min (>60) > 60 mL/min (>60) Glucose Level 104 MG/DL (74-106) 149 MG/DL (74-106) Calcium Level 9.1 MG/DL (8.5-10.1) 9.0 MG/DL (8.5-10.1) Total Bilirubin 0.5 MG/DL (0.2-1.0) 0.7 MG/DL (0.2-1.0) Aspartate Amino Transf (AST/SGOT) 47 U/L (15-37) 46 U/L (15-37) Alanine Aminotransferase (ALT/SGPT) 34 U/L (12-78) 33 U/L (12-78) Alkaline Phosphatase 90 U/L (46-116) 92 U/L (46-116) Total Creatine Kinase 759 U/L (26-308) Creatine Kinase MB 16.2 NG/ML (0.0-3.6) Creatine Kinase MB Relative Index 2.1 Troponin I 0.132 ng/mL (0.000-0.056) Pro-B-Type Natriuretic Peptide 309 pg/mL (0-125) Total Protein 7.7 G/DL (6.4-8.2) 7.4 G/DL (6.4-8.2) Albumin 3.5 G/DL (3.4-5.0) 3.2 G/DL (3.4-5.0) Globulin 4.2 g/dL 4.2 g/dL Albumin/Globulin Ratio 0.8 (1.0-2.7) 0.8 (1.0-2.7) Lipase 166 U/L (73-393) Serum Alcohol < 3 mg/dL Lactic Acid Level 1.30 mmol/L (0.4-2.0) Urine Color Pale yellow Urine Appearance Clear Urine pH 6.5 (4.5-8.0) Urine Specific [place] 1.010 (1.005-1.035) Urine Protein Negative (NEGATIVE) Urine Glucose (UA) Negative (NEGATIVE) Urine Ketones Negative (NEGATIVE) Urine Blood Negative (NEGATIVE) Urine Nitrite Negative (NEGATIVE) Urine Bilirubin Negative (NEGATIVE) Urine Urobilinogen Normal MG/DL (0.0-1.0) Urine Leukocyte Esterase Negative (NEGATIVE) Urine Opiates Screen Negative (NEGATIVE) Urine Barbiturates Screen Negative (NEGATIVE) Phencyclidine (PCP) Screen Negative (NEGATIVE) Urine Amphetamines Screen Negative (NEGATIVE) Urine Benzodiazepines Screen Negative (NEGATIVE) Urine Cocaine Screen Negative (NEGATIVE) Urine Marijuana (THC) Screen Negative (NEGATIVE) Height (Feet): 5 Height (Inches): 10.00 Weight (Pounds): 163 Objective Physical Exam: Vitals: reviewed General Appearance: NAD, ConfuseD++ HEENT: normocephalic, atraumatic Neck: non-tender, supple Respiratory/Chest: normal breath sounds bilaterally Cardiovascular/Chest: normal peripheral pulses, normal rate Abdomen: normal bowel sounds, soft, nontender Extremities: normal range of motion Lee Avila MD Sep 06, 2019 08:42
--- NOTE | 2019-09-06 09:13 | NUR ---
GARDEN IMPLEMENT MECHANIC NOTE SW received a consult for inpatient psych transfer. TRACEE spoke w/ Krysten from [facility] [phone] that there is a long wait list and no bed available anytime soon. TRACEE spoke w/ Sher from [facility] [phone] and faxed the referral packet to [phone]. Signed: 09/06/19 at 0915 by RENETTA EASLEY <Co-Signature Required>
--- NOTE | 2019-09-06 09:36 | NUR ---
BULLET SWAGING MACHINE ADJUSTER NOTE TRACEE spoke w/ Maria De Jesus from [facility] [phone] and faxed the referral packet to [phone] ATTN: Filippo. Signed: 09/06/19 at 0936 by RENETTA EASLEY <Co-Signature Required>
--- NOTE | 2019-09-06 10:48 | NUR ---
NURSE NOTES: D/c'd sitter per order. pt remains in bed with (B)W restraint. no behavioral issue noted at this time. Able to follow command. Safety environment provided. Fall precaution provided. Bed in lowest position, bed alarmed, side rails x2 up. Educated pt to use call light for assistance. Good hygiene and frequent toilet use were provided. Will continue to monitor plan of care.
--- NOTE | 2019-09-06 10:59 | Surgery Progress Note ---
Surgery Progress Note Subjective Additional Comments no acute events Objective Last 24 Hour Vital Signs Date Time Temp Pulse Resp B/P (MAP) Pulse Ox O2 Delivery O2 Flow Rate FiO2 09/06/19 09:39 Room Air 09/06/19 08:00 97.9 81 16 149/91 (110) 96 09/05/19 23:32 97.9 71 16 132/77 (95) 97 09/05/19 21:00 Room Air 09/05/19 20:00 97.7 96 18 118/82 (94) 96 09/05/19 15:49 98.2 78 20 120/63 (82) 09/05/19 12:00 98.6 77 21 144/79 (100) 99 I&O Intake and Output 09/05/19 09/06/19 19:00 07:00 Intake Total 960 ml 100 ml Balance 960 ml 100 ml Intake Oral 960 ml 100 ml # Voids 4 4 Dressing: other Wound: other Drains: other Cardiovascular: RSR Respiratory: decreased breath sounds Abdomen: soft, present bowel sounds Extremities: no cyanosis Plan Problems: (1) Decubital ulcer Assessment & Plan: right arm skin tear traumatic shoulder skin abrasion sacral DTI patient states he is mobile and ambulatory but likes to lay flat or sit is unaware of wounds but states does feel sacral discomfort no n/v/f/c labs noted discussed care plan with patient. he seems motivated to improve but does have psych history :Pt presented on admission with Category 3 Skin tear with full flap loss R deltoid.Small amt sanguineous exudate noted. Category 2 skin tear with 40% flap loss,60% rolled skin flap reapplied to base of wound R upper extremity. Small amt sanguineous exudate. DTPI noted to Sacrum. Base of wound is purple and indurated over sacrococcygeal area with surrounding maroon discoloration. Site tender when minimally palpated. (L)7.5cm x (W)10cm. Non-blanching erythema without induration or fluctuance noted to R heel. Non- tender when palpated. Non-blanching erythema without induration or fluctuance noted to L heel. Non- tender when palpated. No other areas of skin breakdown noted. Tx.Plan:Cleanse Skin tears R deltoid and R upper arm with Saline. Maintain Versatel One contact layer. Apply Silvasorb Gel to each wound. Cover wounds with Optifoam drsgs. Change every 7 days and prn. Apply Moisture Barrier Paste to Sacrum. Cover with Optifoam drsg. Change every 7 days and prn. Apply Cavilon Skin Barrier to both heels. Cover each heel with Optifoam drsg. Change every 7 days and prn. Reposition at least every 2hours or as tolerated. Off-load heels with pillow. Joseph Shipman Sep 06, 2019 10:59
--- NOTE | 2019-09-06 11:11 | NUR ---
MATE CHIEF NOTE TRACEE received a call from [facility] [phone] that they will need a psych note stating the hold was lifted, 's signature and license number. TRACEE will contact Dr. Montez and F/U. Signed: 09/06/19 at 1113 by RENETTA EASLEY <Co-Signature Required>
[2019-09-06 12:00] VITALS: BP 155/100
--- NOTE | 2019-09-06 12:30 | NUR ---
PIPE LAYER HELPER NOTE TRACEE received a call from [facility] that pt will not be accepted d/t pt being not oriented and hx/dx of Dementia per review. TRACEE spoke w/ Rupesh from [facility] that Filippo is out of office today and the intake staff will be in a few hours. TRACEE spoke w/ Chikis from [facility] [phone] and faxed the referral packet to [phone]. Signed: 09/06/19 at 1232 by RENETTA EASLEY <Co-Signature Required>
--- NOTE | 2019-09-06 12:48 | NUR ---
CASE MANAGEMENT:FAMILY COMMUNICATION NOTE CM INFORMED BY NET PROGRAMMER THAT PATIENTS NEPHEW REQUESTING TO SPEAK WITH SATURATOR OPERATOR. ARRIVED TO PATIENTS ROOM. NEPHEW INFORMED CM HE IS AN MD AND HAD JUST SPOKE WITH DR MAURICIO IN RE TO PATIENTS STATUS. PER NEPHEW, STATES IT IS THE FAMILIES INTENTION UPON DISCHARGE TO TAKE THE PATIENT HOME WITH THEM TO [facility]. FAMILY AGREE THEY DO NOT WANT SNF PLACEMENT AT THIS TIME. THEY ARE ABLE TO PROVIDE FOR HIS CARE. SW INFORMED OF FAMILIES DECISION.
--- NOTE | 2019-09-06 12:50 | NUR ---
SNUFF CONTAINER INSPECTOR NOTE TRACEE was informed to disregard inpatient psych transfer. Assigned CM met w/ pt's Uri plan is to live w/ family in [place], [place]. Signed: 09/06/19 at 1251 by RENETTA EASLEY <Co-Signature Required>
--- NOTE | 2019-09-06 13:23 | NUR ---
CASE MANAGEMENT:REVIEW SI;ALTERED MENTAL STATUS. DEMENTIA. GRAVELY DISABLED. 98.6 84 21 96/69 96% ON RA AST 46 IS;RISPERDAL PO Q12 HRS HALDOL IN Q4 HRS PRN ATIVAN IM Q4 HRS PRN MED SURG STATUS DCP;HOME WITH FAMILY TO [facility]
--- NOTE | 2019-09-06 14:30 | NUR ---
NURSE NOTES: discharge order was d/c'd per Dr. Gilbert due to pt's change of condition. pt noted to have altered LOC. drooling on chair. Family member at bedside, RN checked V/S 98/76-89- O2 89%. applied oxygen via NC@2L. pt is awake after few minutes. Assisted pt back to bed. Able to follow commands, and talkative. Informed Dr. Gilbert for change of condition with new order received by Nroeen BAZIZ). will follow up accordingly.
[2019-09-06 14:59] VITALS: BP 100/69
[2019-09-06] MEDS ORDERED: NS 250 ML IVPB ONE (15:45)
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
[2019-09-06 16:00] VITALS: BP 121/79
[2019-09-06] MEDS ORDERED: LORazepam 1mg tab ORAL SCH (16:00)
[2019-09-06 16:31] LABS: HEMATOCRIT 39.6 % (42.0-52.0); HEMOGLOBIN 12.2 G/DL (14.2-18.0); MEAN CORPUSCULAR VOLUME 100 FL (80-99); PLATELET COUNT 343 K/UL (150-450); RED BLOOD COUNT 3.97 M/UL (4.70-6.10); RED CELL DISTRIBUTION WIDTH 13.9 % (11.6-14.8); WHITE BLOOD COUNT 14.3 K/UL (4.8-10.8)
[2019-09-06 16:38] LABS: BASOPHILS % (AUTO) 0.9 % (0.0-2.0); EOSINOPHILS % (AUTO) 0.1 % (0.0-3.0); LYMPHOCYTES % (AUTO) 3.9 % (20.0-45.0); MONOCYTES % (AUTO) 8.1 % (1.0-10.0)
[2019-09-06 16:42] LABS: ANION GAP 8 mmol/L (5-15); BLOOD UREA NITROGEN 17 mg/dL (7-18); CARBON DIOXIDE 31 MMOL/L (21-32); CHLORIDE 104 MMOL/L (98-107); CREATININE 0.9 MG/DL (0.55-1.30); POTASSIUM 4.2 MMOL/L (3.5-5.1); SODIUM 142 MMOL/L (136-145)
[2019-09-06 16:47] LABS: ALANINE AMINOTRANSFERASE 31 U/L (12-78); ALBUMIN 3.5 G/DL (3.4-5.0); ALKALINE PHOSPHATASE 88 U/L (46-116); ASPARTATE AMINO TRANSFERASE 37 U/L (15-37); BILIRUBIN,TOTAL 0.5 MG/DL (0.2-1.0)
--- NOTE | 2019-09-06 16:55 | Diagnostic Imaging Report ---
Indication: Left shoulder pain Technique: 3 views of the shoulder Comparison: none Findings: Positioning is very limited; per technologist, patient unable to cooperate optimally There are degenerative proliferative changes of the glenohumeral joint and mild degenerative narrowing. Inferior acromial spurs are noted. No acute fractures. No dislocations. Impression: Limited exam Degenerative changes as described. No definite acute process
--- NOTE | 2019-09-06 16:56 | Diagnostic Imaging Report ---
Indication: Shortness of breath Technique: One view of the chest Comparison: 09/04/2019 Findings: Again demonstrated is elevation of the left hemidiaphragm and left basilar atelectatic change. The heart is enlarged. The pleural spaces are clear. The aorta is tortuous ectatic and calcified Impression: Left basilar atelectasis Cardiomegaly
--- NOTE | 2019-09-06 16:57 | NUR ---
ST NOTE: REFERRED FOR SWALLOW EVAL BY DR LOWRY. PER RN, WU, PATIENT JUST GIVEN ATIVAN FOR A REPEAT CT OF THE HEAD. PATIENT NOT CONSISTENTLY ALERT FOR PO TRIALS. 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 HE IS AT RISK FOR SILENT ASPIRATION RISK ESPECIALLY IF THERE IS A NEW CVA. PLAN ASSESS TOMORROW AND CONSIDER NPO FOR NOW UNTIL HE IS READY FOR A MOD BARIUM SWALLOW STUDY TO ASSESS SWALLOW, DETERMINE SILENT ASPIRATION RISK, AND ATTEMPT TRIAL TX TECHNIQUES. DISCUSS WITH FAMILY NONORAL FEEDING PREFERENCES (INCLUDING TEMPORARY 12 [place] NGT FOR MORE TIME TO RECOVER TOMORROW AND OVER THE WEEKEND) SINCE CURRENT POLST STATES NO TUBE FEEDINGS.
[2019-09-06] MEDS: D5NS 1,000 ML IV SCH (17:26)
--- NOTE | 2019-09-06 17:30 | NUR ---
NURSE NOTES: pt came back from CT head with stable condition. family member at bedside. remains comfortable in bed. will continue to monitor.
--- NOTE | 2019-09-06 17:40 | Diagnostic Imaging Report ---
Indication: Chest pain Technique: Continuous helical transaxial imaging of the chest was obtained from the thoracic inlet to the upper abdomen. No intravenous contrast was administered. Coronal 2-D reformats were also obtained. Total Dose length Product (DLP): 291.[address] Dose Index Volume (CTDIvol): 6.9 mGy Comparison: none Findings: There is breathing motion limiting evaluation. Within the lower lobes, there are ill-defined groundglass densities present. In addition there are linear densities associated with paraseptal blebs and mild bronchiectasis. There is no adenopathy appreciated. Aorta is mildly calcified. There is a small hiatal hernia. There is narrowing of intervertebral discs and accompanying endplate osteophyte formation. Hypertrophied facet joints also demonstrated. IMPRESSION: Mild basilar groundglass opacities nonspecific. Pneumonia and/or mild CHF not excluded. Interstitial densities at the lung bases with bronchiectasis and paraseptal blebs likely chronic. Degenerative changes of the spine Hiatal hernia Arterial vascular disease The CT scanner at [facility] is accredited by the [employer] and the scans are performed using dose optimization techniques as appropriate to a performed exam including Automatic Exposure control.
--- NOTE | 2019-09-06 18:53 | NUR ---
NURSE NOTES: Received phone call from Cora (lab) with troponin 0.099. Will inform Dr. Em for order.
--- NOTE | 2019-09-06 19:35 | NUR ---
HAND-OFF: Report given to BENJY Berman informed dominguez to follow up with Troponin result with Dr. Herrera.
--- NOTE | 2019-09-06 19:36 | NUR ---
NURSE NOTES: Received patient in bed. Patient asleep. IV site patent and intact. Restraint noted on bilateral wrists, radial pulse present, skin intact. Bed in lowest position. Call light within reach. Will continue to monitor.
[2019-09-06] MEDS: Albuterol/Ipratropium 3ml neb HHN SCH ×2 (19:46→23:21)
[2019-09-06 20:00] VITALS: BP 123/80
--- NOTE | 2019-09-06 20:02 | NUR ---
NURSE NOTES: Obtained EKG order from Dr. Em.
--- NOTE | 2019-09-06 20:04 | NUR ---
NURSE NOTES: Notified ABG result Dr. Yost. No new order at this time.
--- NOTE | 2019-09-06 21:03 | General Progress Note ---
Assessment/Plan Problem List: (1) Altered mental status ICD Codes: R41.82 - Altered mental status, unspecified SNOMED: 897563338 (2) Encephalopathy ICD Codes: G93.40 - Encephalopathy, unspecified SNOMED: 32688804 Status: stable Assessment/Plan: was combatative .meds for agitation per dr gan order restraints combative family wanted t otake him home however had desat consulted dr marshall for desaturation has dementia and psychosis and aggressive treatment of his behaviour by dr gan dementia reviewe chart and labs Subjective ROS Limited/Unobtainable: Yes Allergies: Coded Allergies: UNABLE TO ASSESS (Unverified , 09/04/19) PT. IS ALTERED Objective Last 24 Hour Vital Signs Date Time Temp Pulse Resp B/P (MAP) Pulse Ox O2 Delivery O2 Flow Rate FiO2 09/06/19 19:49 82 18 99 Room Air 21 78 18 97 09/06/19 16:00 98.2 97 16 121/79 (93) 98 09/06/19 14:59 20 100/69 (79) 84 09/06/19 12:00 98.2 80 16 155/100 (118) 96 09/06/19 09:39 Room Air 09/06/19 08:00 97.9 81 16 149/91 (110) 96 09/05/19 23:32 97.9 71 16 132/77 (95) 97 Intake and Output 09/05/19 09/06/19 19:00 07:00 Intake Total 960 ml 100 ml Balance 960 ml 100 ml Intake Oral 960 ml 100 ml # Voids 4 4 Laboratory Tests 09/06/19 15:08: Arterial Blood pH 7.451H, Arterial Blood Partial Pressure CO2 37.5, Arterial Blood Partial Pressure O2 73.2L, Arterial Blood HCO3 25.5, Arterial Blood Oxygen Saturation 94.7L, Arterial Blood Base Excess 1.7, Angel Test Positive 09/06/19 16:00: White Blood Count 14.3#H, Red Blood Count 3.97L, Hemoglobin 12.2L, Hematocrit 39.6L, Mean Corpuscular Volume 100H, Mean Corpuscular Hemoglobin 30.8, Mean Corpuscular Hemoglobin Concent 30.9L, Red Cell Distribution Width 13.9, Platelet Count 343, Mean Platelet Volume 6.3L, Neutrophils (%) (Auto) 87.0H, Lymphocytes (%) (Auto) 3.9L, Monocytes (%) (Auto) 8.1, Eosinophils (%) (Auto) 0.1, Basophils (%) (Auto) 0.9, Sodium Level 142, Potassium Level 4.2, Chloride Level 104, Carbon Dioxide Level 31, Anion Gap 8, Blood Urea Nitrogen 17, Creatinine 0.9, Estimat Glomerular Filtration Rate > 60, Glucose Level 150H, Calcium Level 9.0, Total Bilirubin 0.5, Aspartate Amino Transf (AST/SGOT) 37, Alanine Aminotransferase (ALT/SGPT) 31, Alkaline Phosphatase 88, Troponin I 0.099H, Total Protein 7.1, Albumin 3.5, Globulin 3.6, Albumin/Globulin Ratio 1.0 Height (Feet): 5 Height (Inches): 10.00 Weight (Pounds): 163 General Appearance: confused Orly Gilbert MD Sep 06, 2019 21:03
[2019-09-06] MEDS ORDERED: cefTRIAXone 1 GM in D5W 55 ML IVPB SCH (22:00)
--- NOTE | 2019-09-06 22:59 | Diagnostic Imaging Report ---
Indication: Headache Technique: Contiguous 5 mm thick transaxial imaging of the head obtained in a Siemens Sensation [address] scanner. Soft tissue and bone windows generated. Automatic Exposure Control was utilized. Total Dose length Product (DLP): 1125.[address] Dose Index Volume (CTDIvol): 53.4 mGy Comparison: 09/04/2019 Findings: There is moderate prominence of the ventricles, basal cisterns, and cerebral sulci consistent with atrophy. Moderate, nonspecific, white matter hypoattenuation is noted throughout the brain consistent with chronic small vessel disease. There is no midline shift, edema, acute hemorrhage, mass effect, or abnormal extra-axial fluid collections. Bones are unremarkable. There is an ovoid lesion within the left nasal cavity. This may be a polyp measures about 1.8 x 1.1 cm. Impression: No acute intracranial bleed, mass effect or edema. Moderate atrophy of the brain. Evidence of chronic small vessel disease involving white matter tracts. Suspected left nasal polyp The CT scanner at [facility] is accredited by the [employer] and the scans are performed using dose optimization techniques as appropriate to a performed exam including Automatic Exposure control.
--- NOTE | 2019-09-06 23:23 | NUR ---
NURSE NOTES: Notified Dr. Yost regarding CT head result, CT chest result, and EKG result. No new order at this time.
[2019-09-07] VITALS: BP 132/79
--- NOTE | 2019-09-07 02:15 | Progress Note ---
DATE: 09/06/2019 SUBJECTIVE: The patient was calmer this morning. He had one dose of Risperdal in the morning. The patient started and has now leukocytosis. He was agitated today much calmer, more manageable. MENTAL STATUS EXAMINATION: Alert and oriented x4. Mood is anxious. Affect is flat. Thought process, there is a paucity of thought content. Thought content, no suicidal or homicidal ideation. Cognition is impaired. Insight and judgment impaired. ASSESSMENT: 1. Dementia with behavior disturbance. 2. Acute encephalopathy. PLAN: 1. The patient will be continued on Risperdal 1 b.i.d. 2. Ativan and Haldol p.r.n. 3. Lorazepam 2 mg IM for agitation as well as Haldol IM. 4. Recommend to transfer the patient to SNF after discharge. Family is stating that the patient is living alone. The family is insisting to take the patient home. I do recommend SNF. Karlee Montez M.D. DR: Janet JOB#: [id number] CC: TASH
[2019-09-07] MEDS: Albuterol/Ipratropium 3ml neb HHN SCH ×4 (03:27→15:58)
[2019-09-07 04:00] VITALS: BP 133/81
[2019-09-07] MEDS: D5NS 1,000 ML IV SCH (05:02)
--- NOTE | 2019-09-07 07:30 | NUR ---
HAND-OFF: Report given to Kelsey BURLESON.
--- NOTE | 2019-09-07 07:30 | NUR ---
NURSE NOTES: Received report from BENJY Carrion. PT in bed, awake, talkative, attempting to get oob, pt in bilateral soft wrist restraints, pulses 2+ bilaterally, skin is warm, sensation in both hands intact, pt is A/Ox1, disoriented and confused, RN oriented pt to place, time and situation, provided oral care to pt, changed absorbant brenda, bed in lowest position, call light within reach.
[2019-09-07 07:36] LABS: BASOPHILS % (AUTO) 0.2 % (0.0-2.0); EOSINOPHILS % (AUTO) 0.1 % (0.0-3.0); HEMATOCRIT 35.6 % (42.0-52.0); LYMPHOCYTES % (AUTO) 5.6 % (20.0-45.0); MEAN CORPUSCULAR VOLUME 94 FL (80-99); MONOCYTES % (AUTO) 14.1 % (1.0-10.0); NEUTROPHILS % (AUTO) 80.1 % (45.0-75.0); PLATELET COUNT 340 K/UL (150-450)
--- NOTE | 2019-09-07 07:40 | NUR ---
NURSE NOTES: Pt attempting to get oob, disoriented, RN administered IM Ativan, provided reality reorientation, calm setting, passive voic used.
--- NOTE | 2019-09-07 07:46 | CDS Physician Query ---
Clarification is required for compliance, coding accuracy, and to reflect severity of illness for this patient Dear Dr. Em, Date: 09.07.19 CDS: Sam Juarez Encephalopathy is documented in progress note. Please indicate the nature and chronicity of the condition below: [ ] Metabolic Encephalopathy [ ] Toxic Encephalopathy [ ] Toxic - Metabolic Encephalopathy [ ] Encephalopathy, Other [ ] Dementia with Delirium [ ] Hypoxic encephalopathy [ ] Posterior reversible encephalopathy syndrome [ ] Other: [ ] Not Applicable Present on Admission: [ ] Yes [ ] No [ ] Clinically Undetermined Physician signature Date Please also document in your Progress Notes and/or Discharge Summary and indicate if the condition was present on admission. TASH
[2019-09-07 08:00] VITALS: BP 103/58
[2019-09-07 08:29] LABS: ANION GAP 8 mmol/L (5-15); BLOOD UREA NITROGEN 14 mg/dL (7-18); CALCIUM 8.5 MG/DL (8.5-10.1); CARBON DIOXIDE 28 MMOL/L (21-32); CHLORIDE 104 MMOL/L (98-107); CREATININE 0.8 MG/DL (0.55-1.30); POTASSIUM 3.7 MMOL/L (3.5-5.1); SODIUM 140 MMOL/L (136-145)
--- NOTE | 2019-09-07 09:00 | NUR ---
NURSE NOTES: pt's family Lopez at bedside talking about taking pt home when no as drowsy, asking pt to be able to have a diet order, pt currently NPO, Family is stating they do not want a swallow eval and just want the pt to eat. RN notified Dr. Gilbert of family wishes, order for puree diet entered
--- NOTE | 2019-09-07 10:50 | NUR ---
RD ASSESSMENT & RECOMMENDATIONS SEE CARE ACTIVITY FOR COMPLETE ASSESSMENT DAILY ESTIMATED NEEDS: Needs based on wound, 74kg 25-35 kcals/kg 9052-9173 total kcals 1.25-1.5 g protein/kg 93-111 g total protein 25-30ml/kcal mL/kg 6688-6069 total fluid mLs NUTRITION DIAGNOSIS: Increased pro needs r/t wound healing as evidenced by sacral DTI CURRENT DIET:now regular puree PO DIET RECOMMENDATIONS: Regular diet/ texture per FEATHER CURLING MACHINE OPERATOR ADDITIONAL RECOMMENDATIONS: 1) Rec HgA1C for eval 2) Monitor po intake, need for supplement 3) Wound care: add vit C 250mg daily + DAVID BID 4) Calibrated bed scale wts weekly
--- NOTE | 2019-09-07 10:52 | Infectious Diseases Prog Note ---
Assessment/Plan Assessment/Plan IMPRESSION: Hypoxemia Atelectasis/ ? pneumonia Leukocytosis Altered mental status, likely encephalopathy. Dementia, hearing loss, chronic skin changes, elevated troponin, mild azotemia at the time of admission. RECOMMENDATION: Continue Rocephin in hospital Patient is DNR & family wants patient go back to home Subjective ROS Limited/Unobtainable: Yes Respiratory: Reports: other - had decreased O2 saturation yesterday Neurologic: Reports: confusion, other - on restraint Allergies: Coded Allergies: UNABLE TO ASSESS (Unverified , 09/04/19) PT. IS ALTERED Objective Vital Signs Last 24 Hour Vital Signs Date Time Temp Pulse Resp B/P (MAP) Pulse Ox O2 Delivery O2 Flow Rate FiO2 09/07/19 08:17 77 18 97 Room Air 21 79 18 92 09/07/19 08:00 97.8 79 20 103/58 (73) 92 09/07/19 07:46 Room Air 09/07/19 04:00 97.9 87 20 133/81 (98) 95 09/07/19 03:29 85 16 98 Room Air 21 83 16 95 09/07/19 00:00 97.8 93 20 132/79 (96) 96 09/06/19 23:22 94 18 99 Room Air 21 91 18 98 09/06/19 21:00 Room Air 09/06/19 20:00 98.4 90 21 123/80 (94) 97 09/06/19 19:49 82 18 99 Room Air 21 78 18 97 09/06/19 16:00 98.2 97 16 121/79 (93) 98 09/06/19 14:59 20 100/69 (79) 84 09/06/19 12:00 98.2 80 16 155/100 (118) 96 Height (Feet): 5 Height (Inches): 10.00 Weight (Pounds): 163 HEENT: mucous membranes moist Respiratory/Chest: lungs clear Cardiovascular: normal rate Abdomen: soft, non tender Extremities: no edema Neurologic/Psychiatric: alert, responsive, disoriented Microbiology Date/Time Source Procedure Growth Status 09/04/19 11:30 Blood Blood Culture - Preliminary NO GROWTH AFTER 24 HOURS Resulted 09/04/19 11:25 Blood Blood Culture - Preliminary NO GROWTH AFTER 24 HOURS Resulted 09/04/19 21:50 Nasal Nares MRSA Culture - Final NO METHICILLIN RESISTANT STAPH AUREUS... Complete 09/04/19 21:50 Rectum - Final NO CARBAPENEM-RESISTANT ENTEROBACTERI... Complete 09/04/19 21:50 Rectum VRE Culture - Final NO VANCOMYCIN RESISTANT ENTEROCOCCUS ... Complete Laboratory Tests Test 09/06/19 15:08 09/06/19 16:00 09/07/19 06:10 Arterial Blood pH 7.451 (7.350-7.450) Arterial Blood Partial Pressure CO2 37.5 mmHg (35.0-45.0) Arterial Blood Partial Pressure O2 73.2 mmHg (75.0-100.0) L Arterial Blood HCO3 25.5 mmol/L (22.0-26.0) Arterial Blood Oxygen Saturation 94.7 % (95-100) L Arterial Blood Base Excess 1.7 (-2-2) Angel Test Positive White Blood Count 14.3 K/UL (4.8-10.8) #H 14.0 K/UL (4.8-10.8) H Red Blood Count 3.97 M/UL (4.70-6.10) L 3.80 M/UL (4.70-6.10) L Hemoglobin 12.2 G/DL (14.2-18.0) L 12.0 G/DL (14.2-18.0) L Hematocrit 39.6 % (42.0-52.0) L 35.6 % (42.0-52.0) L Mean Corpuscular Volume 100 FL (80-99) H 94 FL (80-99) Mean Corpuscular Hemoglobin 30.8 PG (27.0-31.0) 31.7 PG (27.0-31.0) H Mean Corpuscular Hemoglobin Concent 30.9 G/DL (32.0-36.0) L 33.7 G/DL (32.0-36.0) Red Cell Distribution Width 13.9 % (11.6-14.8) 13.0 % (11.6-14.8) Platelet Count 343 K/UL (150-450) 340 K/UL (150-450) Mean Platelet Volume 6.3 FL (6.5-10.1) L 5.4 FL (6.5-10.1) L Neutrophils (%) (Auto) 87.0 % (45.0-75.0) H 80.1 % (45.0-75.0) H Lymphocytes (%) (Auto) 3.9 % (20.0-45.0) L 5.6 % (20.0-45.0) L Monocytes (%) (Auto) 8.1 % (1.0-10.0) 14.1 % (1.0-10.0) H Eosinophils (%) (Auto) 0.1 % (0.0-3.0) 0.1 % (0.0-3.0) Basophils (%) (Auto) 0.9 % (0.0-2.0) 0.2 % (0.0-2.0) Sodium Level 142 MMOL/L (136-145) 140 MMOL/L (136-145) Potassium Level 4.2 MMOL/L (3.5-5.1) 3.7 MMOL/L (3.5-5.1) Chloride Level 104 MMOL/L (98-107) 104 MMOL/L (98-107) Carbon Dioxide Level 31 MMOL/L (21-32) 28 MMOL/L (21-32) Anion Gap 8 mmol/L (5-15) 8 mmol/L (5-15) Blood Urea Nitrogen 17 mg/dL (7-18) 14 mg/dL (7-18) Creatinine 0.9 MG/DL (0.55-1.30) 0.8 MG/DL (0.55-1.30) Estimat Glomerular Filtration Rate > 60 mL/min (>60) > 60 mL/min (>60) Glucose Level 150 MG/DL (74-106) H 132 MG/DL (74-106) H Calcium Level 9.0 MG/DL (8.5-10.1) 8.5 MG/DL (8.5-10.1) Total Bilirubin 0.5 MG/DL (0.2-1.0) Aspartate Amino Transf (AST/SGOT) 37 U/L (15-37) Alanine Aminotransferase (ALT/SGPT) 31 U/L (12-78) Alkaline Phosphatase 88 U/L (46-116) Troponin I 0.099 ng/mL (0.000-0.056) Total Protein 7.1 G/DL (6.4-8.2) Albumin 3.5 G/DL (3.4-5.0) Globulin 3.6 g/dL Albumin/Globulin Ratio 1.0 (1.0-2.7) Thyroid Stimulating Hormone (TSH) 14.177 uiU/mL (0.358-3.740) Current Medications Medications (Trade) Dose Ordered Sig/Cydney Route PRN Reason Start Time Stop Time Status Last Admin Dose Admin Acetaminophen (Tylenol) 500 mg Q4H PRN ORAL Mild Pain/Temp > 100.5 09/04/19 23:15 10/04/19 23:14 Albuterol/ Ipratropium (Albuterol/ Ipratropium) 3 ml Q4HRT HHN 09/06/19 19:00 09/11/19 18:59 09/07/19 08:07 Ceftriaxone Sodium 1 gm/ Dextrose 55 ml @ 110 mls/hr Q24H IVPB 09/06/19 22:00 09/13/19 21:59 09/06/19 22:32 Dextrose/Sodium Chloride 1,000 ml @ 75 mls/hr [id number] IV 09/06/19 15:45 10/06/19 15:44 09/07/19 05:02 Haloperidol Lactate (Haldol) 5 mg Q4H PRN IM Agitation 09/06/19 08:30 10/06/19 08:29 09/06/19 16:54 Levothyroxine Sodium (Synthroid) 50 mcg DAILY@0630 ORAL 09/06/19 06:30 10/06/19 06:29 Lorazepam (Ativan 2mg/ml 1ml) 2 mg Q4H PRN IM AGITATION 09/06/19 08:30 09/13/19 08:29 09/07/19 07:38 Risperidone (RisperDAL) 1 mg Q12HR ORAL 09/06/19 09:00 10/06/19 08:59 09/06/19 09:16 Shashi Em MD Sep 07, 2019 10:52
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
[2019-09-07 11:56] VITALS: BP 151/88
--- NOTE | 2019-09-07 13:21 | NUR ---
WIRE MACHINE OPERATOR NOTE SPOKE WITH PATIENTS NEPHEW AT BEDSIDE. NEPHEW INFORMED CM THAT PLAN FOR PATIENT IS FOR HIM TO DISCHARGE TO [facility]. STATES PATIENTS NIECE IS AT THE FACILITY SIGNING DOCUMENTS FOR HIS ADMISSION. [place] STATES PATIENT WILL ADMIT PRIVATE PAY. ALL CLINICALS WILL BE FAXED TO [place] BY [employer] TI[employer]
--- NOTE | 2019-09-07 13:41 | NUR ---
*-*DISCHARGE PLANNING*-* PATIENT HAS BEEN REFERRED TO: [facility] P: [phone] F: [phone]
--- NOTE | 2019-09-07 14:29 | NUR ---
NURSE NOTES: Called report to Sandra at [facility] Addendum: 09/07/19 at 1444 by BRANT GARG RN NURSE NOTES: called updated report to Terrance, Health Director at [facility]
--- NOTE | 2019-09-07 15:19 | Surgery Progress Note ---
Surgery Progress Note Subjective Symptoms: improved Objective Last 24 Hour Vital Signs Date Time Temp Pulse Resp B/P (MAP) Pulse Ox O2 Delivery O2 Flow Rate FiO2 09/07/19 11:56 98.2 92 20 151/88 (109) 93 09/07/19 11:55 80 20 97 Room Air 21 82 20 93 09/07/19 08:17 77 18 97 Room Air 21 79 18 92 09/07/19 08:00 97.8 79 20 103/58 (73) 92 09/07/19 07:46 Room Air 09/07/19 04:00 97.9 87 20 133/81 (98) 95 09/07/19 03:29 85 16 98 Room Air 21 83 16 95 09/07/19 00:00 97.8 93 20 132/79 (96) 96 09/06/19 23:22 94 18 99 Room Air 21 91 18 98 09/06/19 21:00 Room Air 09/06/19 20:00 98.4 90 21 123/80 (94) 97 09/06/19 19:49 82 18 99 Room Air 21 78 18 97 09/06/19 16:00 98.2 97 16 121/79 (93) 98 I&O Intake and Output 09/06/19 09/07/19 19:00 07:00 Intake Total 75 ml 730 ml Output Total 350 ml Balance 75 ml 380 ml IV Total 75 ml 730 ml Output Urine Total 350 ml # Voids 1 Dressing: other Wound: other Drains: other Cardiovascular: RSR Respiratory: decreased breath sounds Abdomen: soft, present bowel sounds Extremities: no cyanosis Laboratory Tests Test 09/06/19 16:00 09/07/19 06:10 White Blood Count 14.3 K/UL (4.8-10.8) #H 14.0 K/UL (4.8-10.8) H Red Blood Count 3.97 M/UL (4.70-6.10) L 3.80 M/UL (4.70-6.10) L Hemoglobin 12.2 G/DL (14.2-18.0) L 12.0 G/DL (14.2-18.0) L Hematocrit 39.6 % (42.0-52.0) L 35.6 % (42.0-52.0) L Mean Corpuscular Volume 100 FL (80-99) H 94 FL (80-99) Mean Corpuscular Hemoglobin 30.8 PG (27.0-31.0) 31.7 PG (27.0-31.0) H Mean Corpuscular Hemoglobin Concent 30.9 G/DL (32.0-36.0) L 33.7 G/DL (32.0-36.0) Red Cell Distribution Width 13.9 % (11.6-14.8) 13.0 % (11.6-14.8) Platelet Count 343 K/UL (150-450) 340 K/UL (150-450) Mean Platelet Volume 6.3 FL (6.5-10.1) L 5.4 FL (6.5-10.1) L Neutrophils (%) (Auto) 87.0 % (45.0-75.0) H 80.1 % (45.0-75.0) H Lymphocytes (%) (Auto) 3.9 % (20.0-45.0) L 5.6 % (20.0-45.0) L Monocytes (%) (Auto) 8.1 % (1.0-10.0) 14.1 % (1.0-10.0) H Eosinophils (%) (Auto) 0.1 % (0.0-3.0) 0.1 % (0.0-3.0) Basophils (%) (Auto) 0.9 % (0.0-2.0) 0.2 % (0.0-2.0) Sodium Level 142 MMOL/L (136-145) 140 MMOL/L (136-145) Potassium Level 4.2 MMOL/L (3.5-5.1) 3.7 MMOL/L (3.5-5.1) Chloride Level 104 MMOL/L (98-107) 104 MMOL/L (98-107) Carbon Dioxide Level 31 MMOL/L (21-32) 28 MMOL/L (21-32) Anion Gap 8 mmol/L (5-15) 8 mmol/L (5-15) Blood Urea Nitrogen 17 mg/dL (7-18) 14 mg/dL (7-18) Creatinine 0.9 MG/DL (0.55-1.30) 0.8 MG/DL (0.55-1.30) Estimat Glomerular Filtration Rate > 60 mL/min (>60) > 60 mL/min (>60) Glucose Level 150 MG/DL (74-106) H 132 MG/DL (74-106) H Calcium Level 9.0 MG/DL (8.5-10.1) 8.5 MG/DL (8.5-10.1) Total Bilirubin 0.5 MG/DL (0.2-1.0) Aspartate Amino Transf (AST/SGOT) 37 U/L (15-37) Alanine Aminotransferase (ALT/SGPT) 31 U/L (12-78) Alkaline Phosphatase 88 U/L (46-116) Troponin I 0.099 ng/mL (0.000-0.056) Total Protein 7.1 G/DL (6.4-8.2) Albumin 3.5 G/DL (3.4-5.0) Globulin 3.6 g/dL Albumin/Globulin Ratio 1.0 (1.0-2.7) Thyroid Stimulating Hormone (TSH) 14.177 uiU/mL (0.358-3.740) Plan Problems: (1) Decubital ulcer Assessment & Plan: right arm skin tear traumatic shoulder skin abrasion sacral DTI patient states he is mobile and ambulatory but likes to lay flat or sit is unaware of wounds but states does feel sacral discomfort no n/v/f/c labs noted discussed care plan with patient. he seems motivated to improve but does have psych history :Pt presented on admission with Category 3 Skin tear with full flap loss R deltoid.Small amt sanguineous exudate noted. Category 2 skin tear with 40% flap loss,60% rolled skin flap reapplied to base of wound R upper extremity. Small amt sanguineous exudate. DTPI noted to Sacrum. Base of wound is purple and indurated over sacrococcygeal area with surrounding maroon discoloration. Site tender when minimally palpated. (L)7.5cm x (W)10cm. Non-blanching erythema without induration or fluctuance noted to R heel. Non- tender when palpated. Non-blanching erythema without induration or fluctuance noted to L heel. Non- tender when palpated. No other areas of skin breakdown noted. Tx.Plan:Cleanse Skin tears R deltoid and R upper arm with Saline. Maintain Versatel One contact layer. Apply Silvasorb Gel to each wound. Cover wounds with Optifoam drsgs. Change every 7 days and prn. Apply Moisture Barrier Paste to Sacrum. Cover with Optifoam drsg. Change every 7 days and prn. Apply Cavilon Skin Barrier to both heels. Cover each heel with Optifoam drsg. Change every 7 days and prn. Reposition at least every 2hours or as tolerated. Off-load heels with pillow. Joseph Shipman Sep 07, 2019 15:19
[2019-09-07 16:00] VITALS: BP 141/81
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
--- NOTE | 2019-09-07 18:18 | NUR ---
S PATIENT CLEARED FOR ST INTERVENTION THIS MORNING BY BENJY GUO. PATIENT ALERT, AWAKE/CONFUSED. O: DYSPHAGIA FOLLOWUP A: ORDERED REGULAR TEXTURE DIET THIS MORNING. PATIENT TOLERATING INTAKE, BUT HIS INTAKE LEVELS ARE INSUFFICIENT TO SUPPORT HIS WOUND HEALING NEEDS, NUTRITION/ HYDRATION NEEDS. P.O. TRIALS LIMITED TO PUREE AND THIN LIQUID. NO OVERT S/S OF ASPIRATION BUT PATIENTS HX SIGNIFICANT FOR POTENTIAL SILENT ASPIRATION RISK. P: D/C PENDING TO ULTIMATELY LIVE WITH FAMILY IN [facility] ST INTERVENTION RECOMMENDED AT NEXT LEVEL OF CARE.
--- NOTE | 2019-09-07 20:15 | Hematology/Onc Progress Note ---
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 --> Hgb goal >7. Transfuse prn. --> Epogen or iron at this time is not particularly indicated --> Medications have been reviewed --> low threshold for gi evaluation in case has occult + --> hgb 12.9 # Troponin elevation --> mild, as per cards eval --> repeat as needed # Dehydration --> po intake and ivf as needed --> per renal # pSych d/o --> as per Dr. Montez # Dementia --> per neuro Reviewed with Rn, appreciate consultation Subjective Allergies: Coded Allergies: UNABLE TO ASSESS (Unverified , 09/04/19) PT. IS ALTERED Subjective 09/06: labs noted, with restraints, psych aware, meds reviewed 09/07: no acute events, pt is dnr and family wants him to go home Objective Objective Last 24 Hour Vital Signs Date Time Temp Pulse Resp B/P (MAP) Pulse Ox O2 Delivery O2 Flow Rate FiO2 09/07/19 16:08 74 20 98 Room Air 21 77 20 93 09/07/19 16:00 98.0 92 18 141/81 (101) 94 09/07/19 11:56 98.2 92 20 151/88 (109) 93 09/07/19 11:55 80 20 97 Room Air 21 82 20 93 09/07/19 08:17 77 18 97 Room Air 21 79 18 92 09/07/19 08:00 97.8 79 20 103/58 (73) 92 09/07/19 07:46 Room Air 09/07/19 04:00 97.9 87 20 133/81 (98) 95 09/07/19 03:29 85 16 98 Room Air 21 83 16 95 09/07/19 00:00 97.8 93 20 132/79 (96) 96 09/06/19 23:22 94 18 99 Room Air 21 91 18 98 09/06/19 21:00 Room Air 09/06/19 20:00 98.4 90 21 123/80 (94) 97 09/06/19 19:49 82 18 99 Room Air 21 78 18 97 09/06/19 16:00 98.2 97 16 121/79 (93) 98 09/06/19 14:59 20 100/69 (79) 84 09/06/19 12:00 98.2 80 16 155/100 (118) 96 09/06/19 09:39 Room Air 09/06/19 08:00 97.9 81 16 149/91 (110) 96 09/05/19 23:32 97.9 71 16 132/77 (95) 97 09/05/19 21:00 Room Air Intake and Output 09/06/19 09/07/19 19:00 07:00 Intake Total 75 ml 730 ml Output Total 350 ml Balance 75 ml 380 ml IV Total 75 ml 730 ml Output Urine Total 350 ml # Voids 1 Labs Test 09/05/19 07:30 09/06/19 15:08 09/06/19 16:00 09/07/19 06:10 White Blood Count 9.2 K/UL (4.8-10.8) 14.3 K/UL (4.8-10.8) 14.0 K/UL (4.8-10.8) Red Blood Count 4.03 M/UL (4.70-6.10) 3.97 M/UL (4.70-6.10) 3.80 M/UL (4.70-6.10) Hemoglobin 12.9 G/DL (14.2-18.0) 12.2 G/DL (14.2-18.0) 12.0 G/DL (14.2-18.0) Hematocrit 38.0 % (42.0-52.0) 39.6 % (42.0-52.0) 35.6 % (42.0-52.0) Mean Corpuscular Volume 94 FL (80-99) 100 FL (80-99) 94 FL (80-99) Mean Corpuscular Hemoglobin 31.9 PG (27.0-31.0) 30.8 PG (27.0-31.0) 31.7 PG (27.0-31.0) Mean Corpuscular Hemoglobin Concent 33.9 G/DL (32.0-36.0) 30.9 G/DL (32.0-36.0) 33.7 G/DL (32.0-36.0) Red Cell Distribution Width 12.9 % (11.6-14.8) 13.9 % (11.6-14.8) 13.0 % (11.6-14.8) Platelet Count 349 K/UL (150-450) 343 K/UL (150-450) 340 K/UL (150-450) Mean Platelet Volume 5.4 FL (6.5-10.1) 6.3 FL (6.5-10.1) 5.4 FL (6.5-10.1) Neutrophils (%) (Auto) 77.9 % (45.0-75.0) 87.0 % (45.0-75.0) 80.1 % (45.0-75.0) Lymphocytes (%) (Auto) 10.4 % (20.0-45.0) 3.9 % (20.0-45.0) 5.6 % (20.0-45.0) Monocytes (%) (Auto) 10.0 % (1.0-10.0) 8.1 % (1.0-10.0) 14.1 % (1.0-10.0) Eosinophils (%) (Auto) 1.2 % (0.0-3.0) 0.1 % (0.0-3.0) 0.1 % (0.0-3.0) Basophils (%) (Auto) 0.5 % (0.0-2.0) 0.9 % (0.0-2.0) 0.2 % (0.0-2.0) Sodium Level 140 MMOL/L (136-145) 142 MMOL/L (136-145) 140 MMOL/L (136-145) Potassium Level 3.9 MMOL/L (3.5-5.1) 4.2 MMOL/L (3.5-5.1) 3.7 MMOL/L (3.5-5.1) Chloride Level 106 MMOL/L (98-107) 104 MMOL/L (98-107) 104 MMOL/L (98-107) Carbon Dioxide Level 23 MMOL/L (21-32) 31 MMOL/L (21-32) 28 MMOL/L (21-32) Anion Gap 11 mmol/L (5-15) 8 mmol/L (5-15) 8 mmol/L (5-15) Blood Urea Nitrogen 16 mg/dL (7-18) 17 mg/dL (7-18) 14 mg/dL (7-18) Creatinine 0.8 MG/DL (0.55-1.30) 0.9 MG/DL (0.55-1.30) 0.8 MG/DL (0.55-1.30) Estimat Glomerular Filtration Rate > 60 mL/min (>60) > 60 mL/min (>60) > 60 mL/min (>60) Glucose Level 149 MG/DL (74-106) 150 MG/DL (74-106) 132 MG/DL (74-106) Calcium Level 9.0 MG/DL (8.5-10.1) 9.0 MG/DL (8.5-10.1) 8.5 MG/DL (8.5-10.1) Total Bilirubin 0.7 MG/DL (0.2-1.0) 0.5 MG/DL (0.2-1.0) Aspartate Amino Transf (AST/SGOT) 46 U/L (15-37) 37 U/L (15-37) Alanine Aminotransferase (ALT/SGPT) 33 U/L (12-78) 31 U/L (12-78) Alkaline Phosphatase 92 U/L (46-116) 88 U/L (46-116) Total Protein 7.4 G/DL (6.4-8.2) 7.1 G/DL (6.4-8.2) Albumin 3.2 G/DL (3.4-5.0) 3.5 G/DL (3.4-5.0) Globulin 4.2 g/dL 3.6 g/dL Albumin/Globulin Ratio 0.8 (1.0-2.7) 1.0 (1.0-2.7) Arterial Blood pH 7.451 (7.350-7.450) Arterial Blood Partial Pressure CO2 37.5 mmHg (35.0-45.0) Arterial Blood Partial Pressure O2 73.2 mmHg (75.0-100.0) Arterial Blood HCO3 25.5 mmol/L (22.0-26.0) Arterial Blood Oxygen Saturation 94.7 % (95-100) Arterial Blood Base Excess 1.7 (-2-2) Angel Test Positive Troponin I 0.099 ng/mL (0.000-0.056) Thyroid Stimulating Hormone (TSH) 14.177 uiU/mL (0.358-3.740) Height (Feet): 5 Height (Inches): 10.00 Weight (Pounds): 163 Objective Physical Exam: Vitals: reviewed General Appearance: NAD, ConfuseD++ HEENT: normocephalic, atraumatic Neck: non-tender, supple Respiratory/Chest: normal breath sounds bilaterally Cardiovascular/Chest: normal peripheral pulses, normal rate Abdomen: normal bowel sounds, soft, nontender Extremities: normal range of motion Lee Avila MD Sep 07, 2019 20:15
--- NOTE | 2019-09-07 22:00 | Consultation ---
DATE OF CONSULTATION: 09/07/2019 CARDIOLOGY CONSULTATION CONSULTING PHYSICIAN: Gary Em M.D. REFERRING PHYSICIAN: Orly Gilbert M.D. REASON FOR CONSULTATION: Management of hypertension emergency. HISTORY OF PRESENT ILLNESS: The patient is a very unfortunate 89-year-old gentleman, who presents to the hospital with the police department for acting bizarre and abnormal behavior. The patient was placed on 5150 at the time of arrival to this hospital. The patient had altered level of consciousness in the emergency department, therefore a detailed history could not be obtained. Initial blood pressure was 212/110 mmHg and heart rate was 80. Laboratory findings were significant for elevation of troponin I level of 0.13 and elevation of proBNP at 309. A urine tox screen was negative in the emergency department and the patient was admitted to the hospital. PAST MEDICAL HISTORY: Significant for dementia, hearing loss, and psychiatric disorder. PAST SURGICAL HISTORY: None. ALLERGIES: No known drug allergies. FAMILY HISTORY: No premature coronary artery disease in the first-degree relatives. MEDICATIONS: List of medications, none. REVIEW OF SYSTEMS: A 12-system review could not be done as the patient is altered. PHYSICAL EXAMINATION: VITAL SIGNS: At the time of arrival of the patient to the floor, blood pressure was 212/110 mmHg, pulse of 80, respirations 19. O2 saturation 98% on room air. Blood pressure, however, today was slightly better at 151/88 mmHg and heart rate of 92. GENERAL: In no apparent respiratory distress. Mildly agitated. HEENT: Atraumatic and normocephalic. Anicteric. Pupils are equal, round, and reactive to light and accommodation. Extraocular muscles intact. NECK: JVP less than 5 cm. No carotid bruit. Carotid upstrokes 2+ bilaterally. CARDIOVASCULAR: Normal S1 and S2. Regular rate and rhythm. No murmurs, gallops, or rubs. PMI is at fourth intercostal space in the midclavicular. LUNGS: Clear to auscultation bilaterally. ABDOMEN: Soft, nontender, and nondistended. No hepatosplenomegaly. Positive bowel sounds. EXTREMITIES: No evidence of edema, clubbing, or cyanosis. LABORATORY FINDINGS: Chemistry showed sodium 140, potassium 3.7, chloride 104, bicarbonate 28, BUN of 14, and creatinine 0.8. Glucose is 132. Calcium is 8.5. Troponin I was 0.132 and 0.99. TSH is elevated at 14.1. WBC was 14.0 hemoglobin 12.0, hematocrit 35.6, and platelet count 340,000. 2D echocardiography done on 09/07/2019 showed normal LV systolic function with LVEF of approximately 55% to 60%, aortic valve sclerosis, mild mitral regurgitation, grade 1 LV diastolic dysfunction. Right ventricular systolic pressure measured at 19 mmHg consistent with normal pulmonary artery pressure. ASSESSMENT AND PLAN: 1. Hypertension crisis. The patient's blood pressure somewhat controlled with psychiatric regimen. September 07 at 8 o'clock, blood pressure was 103/58 mmHg. Continue to monitor the patient's blood pressure through this admission. Surge of blood pressure at the time of arrival to this hospital could be secondary to his agitation in association with involvement of police department. 2. History of psychiatric disorder. 3. Elevation of troponin I level in this patient could be secondary to demand ischemia or type 2 non-ST elevation myocardial infarction, or could be secondary to hypertension crisis at the time of arrival to the hospital. The patient will benefit from myocardial perfusion imaging study, which will be scheduled for Tuesday. 4. Of note, a 2D echocardiography had shown normal LV systolic function. LVEF approximately 55% to 60%. 5. Further therapeutic and diagnostic decision will be based on results of the nuclear stress test. I would like to thank Dr. Gilbert for the courtesy of this consultation. Gary Em M.D. DR: NICOLE JOB#: [id number] CC:
[2019-09-08] MEDS ORDERED: Ascorbic Acid 500mg tab ORAL SCH (09:00)
--- NOTE | 2019-09-09 12:08 | Discharge Summary ---
Discharge Summary Discharge Summary _ DATE OF ADMISSION: 09/04/2019 DATE OF DISCHARGE: 09/07/2019 DISCHARGED BY: Dr. Orly Calles CONSULTANTS: Dr. Gary Montez [facility] COURSE: The patient is an 89-year-old male, who presented to the police department and appeared to be acting bizarre. Police Department was concerned. On arrival to the patient's house, and the house was unkept and police were concerned about patient's wellbeing. Patient was placed on 5150. Upon evaluation at ED, patient had broken thought process. History was limited. He was initially refusing intervention. There was no obvious focal deficit. Blood work did not show any leukocytosis. Hemoglobin and hematocrit were slightly low but stable. Electrolytes were normal. Urinalysis was negative. Urine toxicology screen negative. Troponin slightly elevated. He was then admitted for evaluation of encephalopathy. He underwent psychiatric evaluation. He was started on low-dose antipsychotic. He was given risperidone. He was placed on PRN Lorazepam and Haldol. Patient had anemia of chronic disease. He did not require any blood transfusion or iron. There was no evidence of hemolysis. He had basilar atelectasis on chest x-ray. He was placed on nebulizer treatment. Venous duplex was negative for DVT. Chest CT showed mild groundglass opacities. He was given Rocephin. Echocardiogram showed LVEF approximately 55 to 60%, aortic valve sclerosis, mild mitral regurgitation, grade 1 left ventricular diastolic dysfunction, right ventricular systolic pressure measured at 19 mm consistent with normal pulmonary artery pressure. Slight elevation in troponin could be demand ischemia versus type II non-ST elevated [place] or could be secondary to hypertensive crisis at the time of arrival to the hospital. On admission he was noted to have a sacral deep tissue injury. Surgeon was consulted. Patient is mobile and ambulatory but likes to lay flat for sleep. Patient was unaware of the wounds. He was noted to have right arm traumatic skin tear and shoulder abrasion. He was given wound care. Advised frequent repositioning. He complained of left shoulder pain. X-ray did not show any definitive acute process. Head CT did not show any acute intracranial bleed, mass-effect or edema. Blood culture did not isolate any growth. He was eventually discharged to assisted living. FINAL DIAGNOSES: Acute metabolic encephalopathy Hypertension stable crisis Elevation of troponin Sacral deep tissue injury, right arms traumatic skin tear and right shoulder abrasion, present on admission Possible dementia with behavioral disturbance Hypothyroidism Left shoulder pain Possible pneumonia Possible dementia Hearing loss DISPOSITION: [facility] I have been assigned to complete a discharge summary on this account, I was not involved with the patient's management.--ELMIRA Durán Jacqueline Robles NP Sep 09, 2019 12:08
--- NOTE | 2019-09-11 17:15 | Consultation ---
DATE OF CONSULTATION: 09/07/2019 ENDOCRINOLOGY CONSULTATION CONSULTING PHYSICIAN: Robin Andrade M.D. REFERRING PHYSICIANS: 1. Orly Gilbert M.D. REASON FOR CONSULTATION: I was asked to see this 89-year-old male by Dr. Orly Gilbert in endocrinology consultation for management of hypothyroidism. PERTINENT HISTORY: The patient has been hypothyroid for several years . He is on levothyroxine 50 mcg po qd .In hospital TSH is 14.177. Consultation had been obtained just prior to transfer back to [facility]. FH, PH and ROS negative. PHYSICAL EXAMINATION: GENERAL: The patient is in no acute distress. VITAL SIGNS: Blood pressure is 114/81, pulse 92, respiratory rate 20, temperature 98/0,,WT 74 kg. HEAD AND NECK: Unremarkable. No jugular venous distention. LUNGS: Decreased breath sounds. CARDIOVASCULAR: Regular. ABDOMEN: Soft. Bowel sounds present. EXTREMITIES: No edema. NEUROLOGICAL: Cranial nerves II through XII are grossly intact. Toes are downgoing to plantar stimulation. LABORATORY DATA: His TSH 14.177 (Normal range 0.358 to 3.740) ASSESSMENT: Hypothyroidism on inadequate replacement. PLAN: Increase levothyroxine to 125 mcg po qd,Repeat TSH in 2 weeks. Robin Andrade M.D. DR: EUGENE JOB#: [id number] CC: TASH
== END 2019-09-07 17:31 | disposition home or self-care (01) | DRG 304 ==
LOC: EDBD 10:44 → EMR 11:41 → 4E 11:52 → EDBEDREQ 18:11 → 4E 09-06 10:26
DX: I16.9 Hypertensive crisis, unspecified (principal); J18.9 Pneumonia, unspecified organism; G93.41 Metabolic encephalopathy; J98.11 Atelectasis; F03.91 Unspecified dementia, unspecified severity, with behavioral disturbance; F05 Delirium due to known physiological condition; L89.156 Pressure-induced deep tissue damage of sacral region; H91.90 Unspecified hearing loss, unspecified ear; F03.90 Unspecified dementia, unspecified severity, without behavioral disturbance, psychotic disturbance, mood disturbance, and anxiety; D63.8 Anemia in other chronic diseases classified elsewhere; I34.0 Nonrheumatic mitral (valve) insufficiency; R74.8 Abnormal levels of other serum enzymes; E03.9 Hypothyroidism, unspecified; M25.512 Pain in left shoulder; F41.9 Anxiety disorder, unspecified; I35.8 Other nonrheumatic aortic valve disorders; S40.211A Abrasion of right shoulder, initial encounter; X58.XXXA Exposure to other specified factors, initial encounter
CPT/HCPCS: 36415; 36600; 70450; 71045; 71250; 80048; 80053; 80307; 81003; 82550; 82553; 82803; 83605; 83690; 83880; 84443; 84484; 85025; 87040; 87081; 93005; 93306; 93970; 94640; 96361; 96372; 96374; 99285; G0480; J7030; J7620